=== PATIENT | female | born 1985 | race American Indian/Alaskan Native ===

== ENCOUNTER 2016-09-12 07:54 | Inpatient (IN) | payer MEDICAID ==
[2016-09-12] MEDS ORDERED: Lidocaine 1% 30 ML SDV INJECT PRN (08:02)
[2016-09-12] MEDS ORDERED: Acetaminophen 325 MG Tab PO PRN (08:02)
[2016-09-12] MEDS ORDERED: Carboprost Tromethamine 250 MCG/1 ML Amp IM PRN (08:02)
[2016-09-12] MEDS ORDERED: Sodium Chloride 0.9% 10 ML Syringe FLUSH PRN (08:02)
[2016-09-12] MEDS ORDERED: Lactated Ringers 500 ML IV ONE (08:02)
[2016-09-12] MEDS ORDERED: Methylergonovine 0.2 MG/1 ML Amp IM PRN (08:02)
[2016-09-12] MEDS ORDERED: Misoprostol 400 MCG (4 X 100 MCG TAB) RECTAL PRN (08:02)
[2016-09-12] MEDS ORDERED: Ondansetron 4 MG/2 ML SDV IV PRN (08:02)
[2016-09-12] MEDS ORDERED: Lactated Ringers 1,000 ML IV SCH (08:15)
[2016-09-12] MEDS ORDERED: fentaNYL 100 MCG/2 ML SDV ONE (08:24)
[2016-09-12] MEDS: fentaNYL 100 MCG/2 ML SDV IVPUSH ONE ×2 (08:27→09:49)
[2016-09-12] MEDS ORDERED: Oxytocin/Normal Saline 30 UNIT/500 ML BAG IV SCH (09:30)
[2016-09-12] MEDS ORDERED: fentaNYL 100 MCG/2 ML SDV IVPUSH ONE (09:46)
[2016-09-12] MEDS ORDERED: Benzocaine/Menthol 20%-0.5% Spray 56 GM Canister TOP PRN (12:35)
[2016-09-12] MEDS ORDERED: Simethicone 80 MG Tab.Chew PO PRN (12:35)
--- NOTE | 2016-09-12 13:30 | HP ---
HISTORY OF PRESENT ILLNESS: Gracie Rabago is a 31-year-old G5, P3-0-1-3 female at 38 weeks 3 days gestation being admitted for active labor at term. She complains of contractions, which started last night and have been gradually increasing in frequency and severity since onset. She did lose her mucus plug. Denies vaginal bleeding, leakage of fluid. Does endorse movement. She also endorses occasional blurred vision, but denies current headache, shortness of breath, nausea, vomiting, right upper quadrant pain, hematuria, dysuria, increased frequency, increased swelling or flank pain. She was seen last night in labor and delivery and was sent home as she did not declare herself in active labor making no cervical change after 2 hours. LABS: Maternal blood type O positive, antibody screen negative, rubella positive, RPR nonreactive, hep B nonreactive, HIV nonreactive, gonorrhea and Chlamydia not detected. Hep C reactive. Negative for group B strep. Glucose at 28 weeks was at 183. She did not come back for 3-hour glucose tolerance test. care started late, but has with her first visit at 26 weeks, but since then has had good care. COMPLICATIONS: Diet-controlled gestational diabetes, history of depression, positive urine drug screen; UDS in January was positive for opiates, has had 4 negative UDS since then with the most recent being yesterday. Hepatitis C carrier. Chlamydia during this which was treated and tested for cure. OBSTETRICAL HISTORY: First in 2004 resulted in spontaneous at 6 weeks. Rest of her 3 pregnancies have been term vaginal deliveries, last in 2014, which was quite precipitous. PAST MEDICAL HISTORY: Hepatitis C carrier. PAST SURGICAL HISTORY: No past surgical history. SOCIAL HISTORY: Originally from [place], [place]. She is currently unemployed. Is in a committed relationship with the father of her children, Shen. Just moved back from [place] to be with Shen. They live in [facility]. No pets. REVIEW OF SYSTEMS: Negative for fevers and chills. HEENT: Negative for headaches, nasal congestion, cough, and sore throat. Positive for vision changes. Respiratory: Negative for cough, sputum, shortness of breath. Cardiovascular: Negative for chest pain, chest pressure, chest discomfort, and lower extremity redness or swelling or pain. Gastrointestinal: Negative for epigastric pain, abdominal pain, change in bowel habits, nausea, vomiting. Genitourinary: Negative for dysuria, frequency, hematuria. Integument: Negative for pruritus, rash. Hematologic/Lymphatic: Negative for bleeding, easy bruising. Behavioral/Psych: Positive for post depression. Negative for history of anxiety. OBJECTIVE: Vital Signs: Blood pressure 128/70, pulse 89, temperature 97.9. General: Alert, oriented, and in no acute distress. Lungs: Clear to auscultation bilaterally. No wheezes or rales. Heart: Regular rate and rhythm. No murmurs, rub, gallop. Abdomen: Gravid, nontender, and nondistended. Bowel sounds present. Extremities: No edema, redness, or induration. heart tones 135, moderate variability, accelerations present, no decelerations. [place] contractions every 2-3 minutes. Presentation cephalic. Cervix dilation 6 cm, effacement 75%, station -2. ASSESSMENT: Gracie Rabago is a 31-year-old female 5 para 3-0-1-3 at 38 weeks and 3 days gestational age, GBS negative status. heart rate category 1. Normal labor at term. PLAN: Admit to labor and delivery. Initiate routine antepartum orders. Plan expectant management. Anticipate spontaneous vaginal delivery. The patient was discussed with Dr. Bridget Pineda. I appreciate her guidance in this case. [facility] /[id number] Patient seen and examined. Agree with Dr. Ramirez's note. -cma7/ [id number] MTDD
[2016-09-12] MEDS: Ibuprofen 800 MG Tab PO PRN ×2 (14:32→22:19)
[2016-09-12] MEDS ORDERED: Sertraline 50 MG Tab PO SCH (21:00)
[2016-09-12] MEDS: Ferrous Sulfate 325 MG Tab PO SCH (22:19)
[2016-09-12] MEDS: Docusate Sodium 100 MG Cap PO PRN (22:19)
[2016-09-13] MEDS: Ferrous Sulfate 325 MG Tab PO SCH (08:10)
[2016-09-13] MEDS: Docusate Sodium 100 MG Cap PO PRN (08:10)
[2016-09-13] MEDS: Ibuprofen 800 MG Tab PO PRN (08:10)
[2016-09-13 08:38] VITALS: BP 121/70
[2016-09-13] MEDS ORDERED: Prenatal Multivitamin with Calcium/Folic Acid/Iron Tab PO SCH (09:00)
--- NOTE | 2016-09-13 10:00 | PN ---
DATE: 09/13/2016 day #1. SUBJECTIVE: Gracie is ambulating, voiding, tolerating regular diet without difficulty. She reports her lochia is minimal in degree. She is not . She is up and ambulating well, tolerating p.o. intake and using the bathroom, good bowel sounds and passing gas, and has had a bowel movement at this time. She has no complaints. OBJECTIVE: Vitals reviewed. Vital Signs: Temperature 36.6 degrees Celsius, heart rate 69, blood pressure 121/70, respiratory rate 16, and oxygen saturation 96% on room air. General: A well-appearing healthy female, in no acute distress. Lungs: Clear to auscultation bilaterally. No wheezes, crackles, or rales. Heart: Regular rate and rhythm. S1 and S2 normal. No murmurs, rubs, or gallops. Abdomen: Soft, nontender, nondistended. Bowel sounds active. Uterus is firm and nontender at 1.5 cm above the umbilicus. Extremities: Lower extremities are nontender and have no edema. Skin: Warm and dry. Well perfused and no visible lesions. LABS: Hemoglobin this morning is 8.8. It was 9.1 on admission. ASSESSMENT: The patient is stable and comfortable, in no acute distress. She is day #1, status post normal spontaneous vaginal delivery. No clinical signs of anemia and her last hemoglobin is 8.8, and she is completely asymptomatic. However, we will start iron supplementation today. She was also started on Zoloft last night for history of depression. PLAN: Plan will be to encourage ambulation. Advance diet as tolerated. Saline lock IV with good oral intake. Continue with advancing routine cares. Plan for discharge later this afternoon. [facility] /[id number] Patient seen and examined. Agree with Dr. Ramirez's note. -09/20/16 2337 MTDD
--- NOTE | 2016-09-13 12:12 | DEL ---
DATE: 09/12/2016 PREDELIVERY DIAGNOSIS: A 31-year-old female -0-1-3 at gestational age 38 weeks 3 days here for normal labor and delivery. HCV carrier. Gestational diabetes diet controlled. Late care. POSTDELIVERY DIAGNOSIS: Same plus s/p delivery viable female . PROCEDURE: Normal spontaneous vaginal delivery. YARN SPINNER: Shaq Ramirez, PGY-III . EPISIOTOMY OR INCISION: No. INDICATIONS FOR INSTRUMENTAL DELIVERY: None. WEIGHT: 8 pounds 14 ounces. score is 8 at 1 minute, 9 at 5 minutes. placenta and cord mechanism, spontaneous delivery. DESCRIPTION: The patient presented to labor and delivery at 8 a.m. on September 12, 2016, in active labor. Cervix is dilated to 6 cm at arrival. Labor proceeded naturally with no need for augmentation or intervention. Bag of water was artificially ruptured. Cervix was completely dilated at 12:08 p.m. and at 12:23 p.m., she delivered a healthy, vigorous new born female . In dorsal lithotomy delivery in OA position over intact perineum. Infant dried and bulb suctioned. Three vessel cord doubly clamped and cut after delay of 45 seconds. Placenta was delivered shortly thereafter intact. EBL was 250 mL. Vagina was explored, and she did have a small left anterior labial laceration, which was hemostatic without intervention. There was another right small labial abrasion that did not require suturing either. Both mother and baby were left in the room in good medical condition. ESTIMATED BLOOD LOSS: 250 mL. SPECIMENS: None. Cord blood was obtained. CONDITION: Stable. Rubella positive. Blood type and antigen O positive, antibody negative. ADDITIONAL NOTES: Delivery performed under attending supervision. This delivery note is dictated for Dr. Bridget Pineda. I appreciate her guidance and extraction with this case. [facility] /[id number] Patient seen and examined. Agree with Dr. Ramirez's note. -cma09/20/16 2343 MTDMyra
--- NOTE | 2016-10-18 08:58 | DISCH ---
ADMITTING DIAGNOSES: 1. 5, para 3-0-1-3, at 38 and 3/7 weeks. 2. Late care. 3. Gestational diabetes, diet controlled. 4. Yeast infections treated at 27 and 35 weeks. 5. History of depression. 6. History of positive drug screen early in , negative the remainder. 7. Hepatitis C carrier. 8. History of spontaneous . 9. Urinary tract infection, treated at 35 weeks. DISCHARGE DIAGNOSES: 1. 5, now para 4-0-1-4, at 38 and 3/7 weeks. 2. Late care. 3. Gestational diabetes, diet controlled. 4. Yeast infections, treated at 27 and 35 weeks. 5. History of depression. 6. History of positive drug screen early in , negative the remainder. 7. Hepatitis C carrier. 8. History of spontaneous . 9. Urinary tract infection, treated at 35 weeks. 10.Delivery of a macrosomic . BRIEF COURSE: A 31-year-old female, admitted to the hospital in active labor which proceeded without complications. She had an uncomplicated spontaneous vaginal delivery with light meconium stained fluid, which went well. She delivered a term female with scores of 8 and 9, weighing 4035 g, length of 19-3/4 inches. There were no complications. Hospital course is good. She has been ambulating, tolerating regular diet, voiding without difficulties. She has not yet had a bowel movement. Admits that she feels like her depression is starting up, and requested being started on her Zoloft immediately. She denies any symptoms of her anemia. Please see Dr. Ramirez's note from earlier on the discharge day for examination. DISPOSITION: Home with family. MEDICATIONS: 1. Zoloft 50 mg p.o. daily. 2. Iron 325 mg twice daily. 3. Colace 100 mg twice daily. 4. Ibuprofen 600 mg every 6 hours as needed. 5. Tylenol 650 mg every 6 hours as needed. FOLLOWUP: She will be needing to set up a 6-week examination in the office. 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 Her questions have been answered. She is comfortable with the plan as outlined. [facility] /[id number] MARCD
== END 2016-09-13 15:00 | disposition home or self-care (01) | DRG 774 ==
LOC: DL.OBCHECK 07:54 → DL.OB 08:02 → OBSVTOIN 12:23
PROVIDERS: ADMIT Family Medicine; ATTEND Family Medicine
PROC: 10E0XZZ Delivery of Products of Conception, External Approach (ICD-10-PCS; principal; 2016-09-12)
PROC: 10907ZC Drainage of Amniotic Fluid, Therapeutic from Products of Conception, Via Natural or Artificial Opening (ICD-10-PCS; 2016-09-12)
DX: O24.420 Gestational diabetes mellitus in childbirth, diet controlled (principal); O99.834 Other infection carrier state complicating childbirth; O99.324 Drug use complicating childbirth; O70.0 First degree perineal laceration during delivery; Z3A.38 38 weeks gestation of pregnancy; Z37.0 Single live birth; F11.90 Opioid use, unspecified, uncomplicated; B18.2 Chronic viral hepatitis C
CPT/HCPCS: 36415; 85014; 85018; 85027; A9270-GY; J2590; J3010; J7120

== ENCOUNTER 2016-10-21 19:33 | Emergency (ER) | payer MEDICAID ==
[2016-10-21 19:42] VITALS: BP 134/76
--- NOTE | 2016-10-21 19:51 | EDM.PDOC ---
ED HPI GENERAL MEDICAL PROBLEM - General Chief Complaint: Skin Complaint Stated Complaint: BITE/BOIL ON UNDERSIDE OF ARM Time Seen by Provider: 10/21/16 19:49 Source of Information: Reports: Patient History Limitations: Reports: No Limitations - History of Present Illness INITIAL COMMENTS - FREE TEXT/NARRATIVE: 1 week h/o boil under left forearm, popped few days ago but now it's back Left Lower Arm Pain Score (Numeric/FACES): 8 - Related Data Allergies Allergy/AdvReac Type Severity Reaction Status Date / Time No Known Allergies Allergy Verified 10/21/16 19:43 Home Meds: Home Meds PNV95/Ferrous Fumarate/FA [ Tablet] 1 tab PO DAILY 09/12/16 [History] Past Medical History - Past Health History Medical/Surgical History: Denies Medical/Surgical History HEENT History: Reports: None Cardiovascular History: Reports: None Respiratory History: Reports: None Gastrointestinal History: Reports: None Genitourinary History: Reports: UTI, Recurrent ENROLLMENT REPRESENTATIVE History: Reports: Other OB/BYN History: three pregnancies, one miscarriage - 2003 Musculoskeletal History: Reports: None Neurological History: Reports: None Psychiatric History: Reports: Depression, Other (See Below) Other Psychiatric History: History of PPD Endocrine/Metabolic History: Reports: Diabetes, Gestational, Other (See Below) Other Endocrine/Metabolic History: Diet-controlled per Epic chart Hematologic History: Reports: None Immunologic History: Reports: None Oncologic (Cancer) History: Reports: None Dermatologic History: Reports: None - Infectious Disease History Infectious Disease History: Reports: Hepatitis C - Past Surgical History Head Surgeries/Procedures: Reports: None Social & Family History - Family History Family Medical History: Noncontributory - Tobacco Use Smoking Status *Q: Never Smoker Years of Tobacco use: 12 Packs/Tins Daily: 0.5 Used Tobacco, but Quit: Yes Month Tobacco Last Used: 2010 Second Hand Smoke Exposure: No - Caffeine Use Caffeine Use: Reports: Coffee - Recreational Drug Use Recreational Drug Use: No Drug Use in Last 12 Months: Yes Recreational Drug Type: Reports: Methamphetamine Recreational Drug Use Frequency: Not Used In Over 6 Months Recreational Drug Last Use: dec ED ROS GENERAL - Review of Systems Review Of Systems: ROS reveals no pertinent complaints other than HPI. ED EXAM, SKIN/RASH Exam: See Below Exam Limited By: No Limitations General Appearance: Alert, WD/WN, No Apparent Distress Ears: Hearing Grossly Normal Throat/Mouth: Normal Voice, No Airway Compromise Head: Atraumatic, Normocephalic Neck: Non-Tender, Full Range of Motion Respiratory/Chest: No Respiratory Distress Cardiovascular: Regular Rate, Rhythm GI/Abdominal: Soft, Non-Tender Neurological: Alert, Oriented, Normal Cognition, Normal Gait, No Motor/Sensory Deficits Psychiatric: Normal Affect, Normal Mood Skin: Warm, Dry, Normal Color Location, Skin: Upper Extremity, Left Characteristics: Other (biol) Associated features: Inflammation Lymphatic: No Adenopathy Course - Vital Signs Last Recorded V/S: Last Vital Signs Temp 36.3 C 10/21/16 19:41 Pulse 87 10/21/16 19:41 Resp 18 10/21/16 19:41 BP 134/76 10/21/16 19:41 Pulse Ox 97 10/21/16 19:41 Departure - Departure Time of Disposition: 19:50 Disposition: Home, Self-Care 01 Condition: Good Clinical Impression: Boil - Discharge Information Instructions: Abscess, [id number] Forms: ED Department Discharge Additional Instructions: 1) use hot compress to boil 2) keep boil covered rx given; clindamycin 150mg qid x 40
== END 2016-10-21 19:53 | disposition home or self-care (01) ==
LOC: DL.ED 19:33
DX: L02.424 Furuncle of left upper limb (principal); Z79.899 Other long term (current) drug therapy
CPT/HCPCS: 99283

== ENCOUNTER 2017-06-06 05:43 | Emergency (ER) | payer MEDICAID ==
[2017-06-06 05:49] VITALS: BP 131/69
--- NOTE | 2017-06-06 06:03 | EDM.PDOC ---
<Bennett Rawls M - Last Filed: 06/06/17 06:27> ED HPI GENERAL MEDICAL PROBLEM - General Stated Complaint: IN BY AMBULANCE Time Seen by Provider: 06/06/17 06:00 Source of Information: Reports: Patient, EMS History Limitations: Reports: No Limitations - History of Present Illness INITIAL COMMENTS - FREE TEXT/NARRATIVE: This 32 yo female patient was brought to the ED by [facility] due to lower abdominal pain and nausea. EMS reports the patient stated that she fell off a bed yesterday. The patient reported to EMS that her last menstrual cycle was in March, but she had some spotting 2 days ago that has quit. [facility] reports that they were called to the patient's residence last night, but the patient refused transport at that time. The patient reports her initial symptoms started at about 0100 this morning with pain to her right side. The patient reports the pain started when she got up to go to the bathroom. The patient reports she took Tylenol which relieved her pain. The patient reports she had increased lower abdominal pain this morning just prior to calling the ambulance. The patient reports her abdominal pain is similar to the symptoms she had last time when she had a miscarriage. The patient also reports she dove off her bed last evening at about 1900 to catch her child and scratched her forehead. The patient reports she has been having a difficult time dealing with her diagnosis of hepatitis C. The patient reports she gets into arguments with her spouse over the hepatitis C. Onset: Today Duration: Minutes:, Constant Location: Reports: Abdomen (diffuse lower abdominal pain) Quality: Reports: Ache, Dull Severity: Moderate Improves with: Reports: None Worsens with: Reports: None Context: Reports: Other Bilateral Lower Abdominal Pain Score (Numeric/FACES): 8 - Related Data Allergies Allergy/AdvReac Type Severity Reaction Status Date / Time No Known Allergies Allergy Verified 06/06/17 05:49 Home Meds: Home Meds QUEtiapine Fumarate [Seroquel Xr] 100 mg PO DAILY 06/06/17 [History] Past Medical History - Past Health History Medical/Surgical History: Denies Medical/Surgical History HEENT History: Reports: None Cardiovascular History: Reports: None Respiratory History: Reports: None Gastrointestinal History: Reports: None Genitourinary History: Reports: UTI, Recurrent ENROLLMENT COORDINATOR History: Reports: Other OB/BYN History: three pregnancies, one miscarriage - 2003 Musculoskeletal History: Reports: None Neurological History: Reports: None Psychiatric History: Reports: Depression, Other (See Below) Other Psychiatric History: History of PPD Endocrine/Metabolic History: Reports: Diabetes, Gestational, Other (See Below) Other Endocrine/Metabolic History: Diet-controlled per Epic chart Hematologic History: Reports: None Immunologic History: Reports: None Oncologic (Cancer) History: Reports: None Dermatologic History: Reports: None - Infectious Disease History Infectious Disease History: Reports: Hepatitis C - Past Surgical History Head Surgeries/Procedures: Reports: None Social & Family History - Family History Family Medical History: Noncontributory - Tobacco Use Smoking Status *Q: Never Smoker Years of Tobacco use: 12 Packs/Tins Daily: 0.5 Used Tobacco, but Quit: Yes Month/Year Tobacco Last Used: 2010 Second Hand Smoke Exposure: No - Caffeine Use Caffeine Use: Reports: Coffee - Recreational Drug Use Recreational Drug Use: No Drug Use in Last 12 Months: Yes Recreational Drug Type: Reports: Methamphetamine Recreational Drug Use Frequency: Not Used In Over 6 Months Recreational Drug Last Use: oct ED ROS GENERAL - Review of Systems Review Of Systems: ROS reveals no pertinent complaints other than HPI. ED EXAM, GI/ABD - Physical Exam Exam: See Below Exam Limited By: No Limitations General Appearance: Alert, WD/WN, Moderate Distress Eyes: Bilateral: Normal Appearance, EOMI Ears: Normal External Exam, Normal Canal, Hearing Grossly Normal, Normal TMs Nose: Normal Inspection, Normal Mucosa, No Blood Throat/Mouth: Normal Inspection, Normal Lips, Normal Teeth, Normal Gums, Normal Oropharynx, Normal Voice, No Airway Compromise Head: Other (abrasion to her forehead) Neck: Normal Inspection, Supple, Non-Tender, Full Range of Motion Respiratory/Chest: No Respiratory Distress, Lungs Clear, Normal Breath Sounds, No Accessory Muscle Use, Chest Non-Tender Cardiovascular: Normal Peripheral Pulses, Regular Rate, Rhythm, No Edema, No Gallop, No JVD, No Murmur, No Rub GI/Abdominal Exam: Normal Bowel Sounds, Soft, No Organomegaly, No Distention, No Abnormal Bruit, No Mass, Pelvis Stable, Tender (lower abdomen) (Female) Exam: Deferred Rectal (Female) Exam: Deferred Back Exam: Normal Inspection, Full Range of Motion, NT Extremities: Normal Inspection, Normal Range of Motion, Non-Tender, Normal Capillary Refill, No Pedal Edema Neurological: Alert, Oriented, CN II-XII Intact, Normal Cognition, Normal Gait, Normal Reflexes, No Motor/Sensory Deficits Psychiatric: Anxious, Flat Affect Skin Exam: Warm, Dry, Intact, Normal Color, No Rash Lymphatic: No Adenopathy Course - Vital Signs Last Recorded V/S: Last Vital Signs Temp 97.7 F 06/06/17 05:43 Pulse 73 06/06/17 05:43 Resp 18 06/06/17 05:43 BP 131/69 06/06/17 05:43 Pulse Ox 98 06/06/17 05:43 - Orders/Labs/Meds Orders: Active Orders 24 hr Category Date Time Status DRUG SCREEN URINE BIORAD [URCHEM] Stat Lab 06/06/17 05:55 Ordered HCG QUALITATIVE,URINE [URCHEM] Stat Lab 06/06/17 05:55 Ordered UA W/MICROSCOPIC [URIN] Stat Lab 06/06/17 05:55 Ordered Labs: Laboratory Tests 06/06/17 06/06/17 06/06/17 Range/Units 05:55 05:55 05:55 WBC (5.0-10.0) 10^3/uL RBC (4.2-5.4) 10^6/uL Hgb (12.0-16.0) g/dL Hct (37.0-47.0) % MCV (80-100) fL MCH (27.0-34.0) pg MCHC (33.0-35.0) g/dL Plt Count (150-450) 10^3/uL Neut % (Auto) (42.2-75.2) % Lymph % (Auto) (20.5-50.1) % Boyd % (Auto) (2-8) % Eos % (Auto) (1.0-3.0) % Baso % (Auto) (0.0-1.0) % Sodium (135-145) mmol/L Potassium (3.6-5.0) mmol/L Chloride (101-111) mmol/L Carbon Dioxide (21.0-31.0) mmol/L Anion Gap BUN (7-18) mg/dL Creatinine (0.6-1.3) mg/dL Est Cr Clr Drug Dosing mL/min Estimated GFR (MDRD) BUN/Creatinine Ratio Glucose (74-105) mg/dL Calcium (8.4-10.2) mg/dl Total Bilirubin (0.2-1.0) mg/dL AST (10-42) IU/L ALT (10-60) IU/L Alkaline Phosphatase (42-121) IU/L Total Protein (6.7-8.2) g/dl Albumin (3.2-5.5) g/dl Globulin Albumin/Globulin Ratio HCG, Quant (0-25) mIU/ml Beta HCG, Quant mIU/ml Urine Color Yellow (YELLOW) Urine Appearance Slightly cloudy (CLEAR) Urine pH 7.0 (5.0-9.0) Ur Specific Kirby 1.020 (1.005-1.030) Urine Protein Negative (NEGATIVE) Urine Glucose (UA) Negative (NEGATIVE) Urine Ketones Trace H (NEGATIVE) Urine Occult Blood Negative (NEGATIVE) Urine Nitrite Negative (NEGATIVE) Urine Bilirubin Negative (NEGATIVE) Urine Urobilinogen 1.0 (0.2-1.0) mg/dL Ur Leukocyte Esterase Negative (NEGATIVE) Urine RBC 0-5 /HPF Urine WBC 0-5 (0-5/HPF) /HPF Ur Epithelial Cells Moderate H /HPF Urine Bacteria Rare (0-FEW/HPF) /HPF Urine Mucus Many H /LPF Urine HCG, Qual Positive Urine Opiates Screen Negative (NEGATIVE) Ur Oxycodone Screen Negative (NEGATIVE) Urine Methadone Screen Negative (NEGATIVE) Ur Barbiturates Screen Negative (NEGATIVE) U Tricyclic Antidepress Negative (NEGATIVE) Ur Phencyclidine Scrn Negative (NEGATIVE) Ur Amphetamine Screen Negative (NEGATIVE) U Methamphetamines Scrn Negative (NEGATIVE) Urine MDMA Screen Negative (NEGATIVE) U Benzodiazepines Scrn Negative (NEGATIVE) Urine Cocaine Screen Negative (NEGATIVE) U Marijuana (THC) Screen Negative (NEGATIVE) 06/06/17 06/06/17 06/06/17 Range/Units 05:55 05:55 05:55 WBC 5.6 (5.0-10.0) 10^3/uL RBC 4.62 (4.2-5.4) 10^6/uL Hgb 11.2 L D (12.0-16.0) g/dL Hct 34.0 L (37.0-47.0) % MCV 73.6 L D (80-100) fL MCH 24.2 L (27.0-34.0) pg MCHC 32.9 L (33.0-35.0) g/dL Plt Count 251 (150-450) 10^3/uL Neut % (Auto) 64.9 (42.2-75.2) % Lymph % (Auto) 26.0 (20.5-50.1) % Boyd % (Auto) 8.7 H (2-8) % Eos % (Auto) 0.2 L (1.0-3.0) % Baso % (Auto) 0.2 (0.0-1.0) % Sodium 133 L (135-145) mmol/L Potassium 3.7 (3.6-5.0) mmol/L Chloride 103 (101-111) mmol/L Carbon Dioxide 22.0 (21.0-31.0) mmol/L Anion Gap 11.7 BUN 10 (7-18) mg/dL Creatinine 0.7 (0.6-1.3) mg/dL Est Cr Clr Drug Dosing 113.24 mL/min Estimated GFR (MDRD) > 60 BUN/Creatinine Ratio 14.28 Glucose 98 (74-105) mg/dL Calcium 9.0 (8.4-10.2) mg/dl Total Bilirubin 0.4 (0.2-1.0) mg/dL AST 26 (10-42) IU/L ALT 23 (10-60) IU/L Alkaline Phosphatase 57 (42-121) IU/L Total Protein 7.5 (6.7-8.2) g/dl Albumin 4.0 (3.2-5.5) g/dl Globulin 3.5 Albumin/Globulin Ratio 1.14 HCG, Quant > 1324 H (0-25) mIU/ml Beta HCG, Quant [id number] mIU/ml Urine Color (YELLOW) Urine Appearance (CLEAR) Urine pH (5.0-9.0) Ur Specific Kirby (1.005-1.030) Urine Protein (NEGATIVE) Urine Glucose (UA) (NEGATIVE) Urine Ketones (NEGATIVE) Urine Occult Blood (NEGATIVE) Urine Nitrite (NEGATIVE) Urine Bilirubin (NEGATIVE) Urine Urobilinogen (0.2-1.0) mg/dL Ur Leukocyte Esterase (NEGATIVE) Urine RBC /HPF Urine WBC (0-5/HPF) /HPF Ur Epithelial Cells /HPF Urine Bacteria (0-FEW/HPF) /HPF Urine Mucus /LPF Urine HCG, Qual Urine Opiates Screen (NEGATIVE) Ur Oxycodone Screen (NEGATIVE) Urine Methadone Screen (NEGATIVE) Ur Barbiturates Screen (NEGATIVE) U Tricyclic Antidepress (NEGATIVE) Ur Phencyclidine Scrn (NEGATIVE) Ur Amphetamine Screen (NEGATIVE) U Methamphetamines Scrn (NEGATIVE) Urine MDMA Screen (NEGATIVE) U Benzodiazepines Scrn (NEGATIVE) Urine Cocaine Screen (NEGATIVE) U Marijuana (THC) Screen (NEGATIVE) Departure - Departure Disposition: Home, Self-Care 01 Clinical Impression: Intrauterine Subchorionic bleed Qualifiers: Fetus number: single or unspecified fetus Trimester: first trimester Qualified Code(s): O41.8X10 - Other specified disorders of amniotic fluid and membranes, first trimester, not applicable or unspecified; O46.8X1 - Other antepartum hemorrhage, first trimester - Discharge Information Instructions: Subchorionic Hematoma, First Trimester of Forms: ED Department Discharge Additional Instructions: Begin taking vitamins Follow up with your primary care facility <Alvina Mcginnis - Last Filed: 06/06/17 08:35> Course - Radiology Interpretation Free Text/Narrative:: OB Ultrasound: Single live 6 week 5 day intrauterine gestation. Tiny subchorionic bleed posteriorly. See rad report Departure - Departure Time of Disposition: 08:33 Condition: Fair
[2017-06-06 06:42] LABS: CHLORIDE,CL 103 mmol/L (101-111); SODIUM,NA 133 mmol/L (135-145)
--- NOTE | 2017-06-06 08:18 | US ---
Clinical history: 32-year-old gravid" 6 para 4 female (LMP 21 March 2017 with cramping and "spottin g" for 2 days. Interpretation: Midline uterus mildly enlarged and anteverted with a clearly demonstrated central ges tational sac that has a uniformly thick chorionic "rind"; 4.4 mm diameter yolk sac; and discrete feta l pole with heart rate 173 bpm. [place]-rump length measurement 7.8 mm proximally to 6 week 5 day gestation. Note: Tiny subchorionic fluid collection posteriorly measures 2.5 x 5.8 x 4.7 mm and probably indicat es tiny subchorionic bleed. Symmetric normal-appearing ovaries. No adnexal mass lesion or free fluid in the cul-de-sac. No corpus luteum cyst of . Right ovary measures 2.6 x 2.3 x 2.0 cm. Left ovary measures 2.3 x 2.3 x 2.6 cm. CONCLUSION: Single live 6 week 5 day intrauterine gestation. Tiny subchorionic bleed posteriorly.
== END 2017-06-06 08:50 | disposition home or self-care (01) ==
LOC: DL.ED 05:43
DX: O41.8X10 Other specified disorders of amniotic fluid and membranes, first trimester, not applicable or unspecified (principal); O46.8X1 Other antepartum hemorrhage, first trimester; Z87.891 Personal history of nicotine dependence; Z3A.01 Less than 8 weeks gestation of pregnancy
CPT/HCPCS: 36415; 76815; 80053; 80305; 81001; 81025; 84702; 85025; 99284

== ENCOUNTER 2017-07-17 02:15 | Emergency (ER) | payer SELFPAY ==
[~2017-07-17 02:15] MED LIST: Sodium Chloride 0.9% 1,000 ML IV ONE
--- NOTE | 2017-07-17 02:19 | EDM.PDOC ---
ED HPI GENERAL MEDICAL PROBLEM - General Stated Complaint: IN BY AMBULANCE Time Seen by Provider: 07/17/17 02:00 Source of Information: Reports: Patient, EMS History Limitations: Reports: No Limitations - History of Present Illness INITIAL COMMENTS - FREE TEXT/NARRATIVE: This 32 yo female patient was brought to the ED by [facility] due to "acting strange" . EMS reports that the patient's partner reports that the patient left this evening for a while and came back acting different. The patient's partner reports that when the patient got home, she went to the bathroom and took a bath. After she got out of the bath, the patient continued to act strange, so the ambulance was called. The patient reports that she took a bath. While she was taking a bath, the patient reports that she saw something swimming in the bathtub. After seeing something swimming in the bathtub, the patient reports she drained the water and got dressed quickly. The patient reports that she was then seeing different things including her and her children's dad in trees by his father's sweat, her daughter crying because she was scared and very bright and vivid colors. The patient reports that she has not used any drugs in the past 2 weeks. The patient denies any ETOH use. The patient reports that she has some lower back pain and some lower abdominal pain. The patient reports her abdominal pain has been present since she was seen in the ED on 06/06/17. During that visit, the patient did have lab work and an ultrasound confirming . The patient reports that she has not followed up with a clinic visit , is not taking vitamins and has not been to any visits. The patient reports that Rubina Liang knows that they have transportation issues. The patient also reports that she knows that she needs to get into the clinic for both herself and her daughter. Onset: Today Duration: Minutes:, Constant, Improving Location: Reports: Abdomen (lower abdominal pain (present for more than 1 month) ), Back (ache), Other Quality: Reports: Ache, Dull Severity: Moderate Improves with: Reports: None Worsens with: Reports: None Associated Symptoms: Reports: Other (hallucinations) Right Upper Back Pain Score (Numeric/FACES): 5 - Related Data Allergies Allergy/AdvReac Type Severity Reaction Status Date / Time No Known Allergies Allergy Verified 06/06/17 05:49 Home Meds: Home Meds QUEtiapine Fumarate [Seroquel Xr] 100 mg PO DAILY 06/06/17 [History] Past Medical History - Past Health History Medical/Surgical History: Denies Medical/Surgical History HEENT History: Reports: None Cardiovascular History: Reports: None Respiratory History: Reports: None Gastrointestinal History: Reports: None Genitourinary History: Reports: UTI, Recurrent 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 OB/BYN History: three pregnancies, one miscarriage - 2003 Musculoskeletal History: Reports: None Neurological History: Reports: None Psychiatric History: Reports: Depression, Other (See Below) Other Psychiatric History: History of PPD Endocrine/Metabolic History: Reports: Diabetes, Gestational, Other (See Below) Other Endocrine/Metabolic History: Diet-controlled per Epic chart Hematologic History: Reports: None Immunologic History: Reports: None Oncologic (Cancer) History: Reports: None Dermatologic History: Reports: None - Infectious Disease History Infectious Disease History: Reports: Hepatitis C - Past Surgical History Head Surgeries/Procedures: Reports: None Social & Family History - Family History Family Medical History: Noncontributory - Caffeine Use Caffeine Use: Reports: Coffee ED ROS GENERAL - Review of Systems Review Of Systems: ROS reveals no pertinent complaints other than HPI. ED EXAM, GENERAL - Physical Exam Exam: See Below Exam Limited By: No Limitations General Appearance: Alert, WD/WN, Mild Distress Eye Exam: Bilateral Eye: EOMI, Normal Inspection, PERRL Ears: Normal External Exam, Normal Canal, Hearing Grossly Normal, Normal TMs Nose: Normal Inspection, Normal Mucosa, No Blood Throat/Mouth: Normal Inspection, Normal Lips, Normal Teeth, Normal Gums, Normal Oropharynx, Normal Voice, No Airway Compromise Head: Atraumatic, Normocephalic Neck: Normal Inspection, Supple, Non-Tender, Full Range of Motion Respiratory/Chest: No Respiratory Distress, Lungs Clear, Normal Breath Sounds, No Accessory Muscle Use, Chest Non-Tender Cardiovascular: Normal Peripheral Pulses, Regular Rate, Rhythm, No Edema, No Gallop, No JVD, No Murmur, No Rub GI/Abdominal: Normal Bowel Sounds, Soft, Non-Tender, No Organomegaly, No Abnormal Bruit, No Mass (Female) Exam: Deferred Rectal (Female) Exam: Deferred Back Exam: Paraspinal Tenderness Extremities: Normal Inspection, Normal Range of Motion, Non-Tender, Normal Capillary Refill, No Pedal Edema Neurological: Alert, Oriented Psychiatric: Other (The patient reports seeing bright colors, visions of things swimming in the bathtub, and visions of events that are not and have not happened. ) Skin Exam: Warm, Dry, Intact, Normal Color, No Rash Lymphatic: No Adenopathy Course - Vital Signs Last Recorded V/S: Last Vital Signs Temp Pulse 64 07/17/17 02:29 Resp 16 07/17/17 02:29 BP 116/61 07/17/17 02:29 Pulse Ox 100 07/17/17 02:29 - Orders/Labs/Meds Orders: Active Orders 24 hr Category Date Time Status ACETAMINOPHEN [CHEM] Stat Lab 07/17/17 02:10 Received DRUG SCREEN URINE BIORAD [URCHEM] Stat Lab 07/17/17 02:15 Ordered ETHANOL BLOOD MEDICAL [CHEM] Stat Lab 07/17/17 02:10 Received HCG QUANTITATIVE,SERUM [CHEM] Stat Lab 07/17/17 02:10 Received SALICYLATE [CHEM] Stat Lab 07/17/17 02:10 Received UA W/MICROSCOPIC [URIN] Stat Lab 07/17/17 02:15 Ordered Sodium Chloride 0.9% [Normal Saline] 1,000 ml Med 07/17/17 02:10 Active IV .BOLUS Medication Orders Sodium Chloride (Normal Saline) 1,000 mls @ 999 mls/hr IV .BOLUS ONE Stop: 07/17/17 03:10 Last Admin: 07/17/17 02:13 Dose: 999 mls/hr Labs: Laboratory Tests 07/17/17 07/17/17 07/17/17 Range/Units 02:10 02:10 02:15 WBC 6.5 (5.0-10.0) 10^3/uL RBC 4.28 (4.2-5.4) 10^6/uL Hgb 10.3 L (12.0-16.0) g/dL Hct 32.1 L (37.0-47.0) % MCV 75.0 L (80-100) fL MCH 24.1 L (27.0-34.0) pg MCHC 32.1 L (33.0-35.0) g/dL Plt Count 255 (150-450) 10^3/uL Neut % (Auto) 48.9 (42.2-75.2) % Lymph % (Auto) 41.9 (20.5-50.1) % [place] % (Auto) 7.8 (2-8) % Eos % (Auto) 1.1 (1.0-3.0) % Baso % (Auto) 0.3 (0.0-1.0) % Sodium 137 (135-145) mmol/L Potassium 4.2 (3.6-5.0) mmol/L Chloride 104 (101-111) mmol/L Carbon Dioxide 28.0 (21.0-31.0) mmol/L Anion Gap 9.2 BUN 9 (7-18) mg/dL Creatinine 0.7 (0.6-1.3) mg/dL Est Cr Clr Drug Dosing TNP Estimated GFR (MDRD) > 60 BUN/Creatinine Ratio 12.85 Glucose 96 (74-105) mg/dL Calcium 8.8 (8.4-10.2) mg/dl Total Bilirubin 0.4 (0.2-1.0) mg/dL AST 23 (10-42) IU/L ALT 22 (10-60) IU/L Alkaline Phosphatase 56 (42-121) IU/L Total Protein 6.8 (6.7-8.2) g/dl Albumin 3.3 (3.2-5.5) g/dl Globulin 3.5 Albumin/Globulin Ratio 0.94 Urine Color Light yellow (YELLOW) Urine Appearance Clear (CLEAR) Urine pH 7.0 (5.0-9.0) Ur Specific [place] 1.010 (1.005-1.030) Urine Protein Negative (NEGATIVE) Urine Glucose (UA) Negative (NEGATIVE) Urine Ketones Negative (NEGATIVE) Urine Occult Blood Negative (NEGATIVE) Urine Nitrite Negative (NEGATIVE) Urine Bilirubin Negative (NEGATIVE) Urine Urobilinogen 0.2 (0.2-1.0) mg/dL Ur Leukocyte Esterase Negative (NEGATIVE) Urine RBC 0-5 /HPF Urine WBC 0-5 (0-5/HPF) /HPF Ur Epithelial Cells Rare /HPF Amorphous Sediment Rare (0/HPF) /HPF Urine Bacteria Rare (0-FEW/HPF) /HPF Urine Opiates Screen (NEGATIVE) Ur Oxycodone Screen (NEGATIVE) Urine Methadone Screen (NEGATIVE) Ur Barbiturates Screen (NEGATIVE) U Tricyclic Antidepress (NEGATIVE) Ur Phencyclidine Scrn (NEGATIVE) Ur Amphetamine Screen (NEGATIVE) U Methamphetamines Scrn (NEGATIVE) Urine MDMA Screen (NEGATIVE) U Benzodiazepines Scrn (NEGATIVE) Urine Cocaine Screen (NEGATIVE) U Marijuana (THC) Screen (NEGATIVE) 07/17/17 Range/Units 02:15 WBC (5.0-10.0) 10^3/uL RBC (4.2-5.4) 10^6/uL Hgb (12.0-16.0) g/dL Hct (37.0-47.0) % MCV (80-100) fL MCH (27.0-34.0) pg MCHC (33.0-35.0) g/dL Plt Count (150-450) 10^3/uL Neut % (Auto) (42.2-75.2) % Lymph % (Auto) (20.5-50.1) % [place] % (Auto) (2-8) % Eos % (Auto) (1.0-3.0) % Baso % (Auto) (0.0-1.0) % Sodium (135-145) mmol/L Potassium (3.6-5.0) mmol/L Chloride (101-111) mmol/L Carbon Dioxide (21.0-31.0) mmol/L Anion Gap BUN (7-18) mg/dL Creatinine (0.6-1.3) mg/dL Est Cr Clr Drug Dosing Estimated GFR (MDRD) BUN/Creatinine Ratio Glucose (74-105) mg/dL Calcium (8.4-10.2) mg/dl Total Bilirubin (0.2-1.0) mg/dL AST (10-42) IU/L ALT (10-60) IU/L Alkaline Phosphatase (42-121) IU/L Total Protein (6.7-8.2) g/dl Albumin (3.2-5.5) g/dl Globulin Albumin/Globulin Ratio Urine Color (YELLOW) Urine Appearance (CLEAR) Urine pH (5.0-9.0) Ur Specific [place] (1.005-1.030) Urine Protein (NEGATIVE) Urine Glucose (UA) (NEGATIVE) Urine Ketones (NEGATIVE) Urine Occult Blood (NEGATIVE) Urine Nitrite (NEGATIVE) Urine Bilirubin (NEGATIVE) Urine Urobilinogen (0.2-1.0) mg/dL Ur Leukocyte Esterase (NEGATIVE) Urine RBC /HPF Urine WBC (0-5/HPF) /HPF Ur Epithelial Cells /HPF Amorphous Sediment (0/HPF) /HPF Urine Bacteria (0-FEW/HPF) /HPF Urine Opiates Screen Negative (NEGATIVE) Ur Oxycodone Screen Negative (NEGATIVE) Urine Methadone Screen Negative (NEGATIVE) Ur Barbiturates Screen Negative (NEGATIVE) U Tricyclic Antidepress Negative (NEGATIVE) Ur Phencyclidine Scrn Negative (NEGATIVE) Ur Amphetamine Screen Negative (NEGATIVE) U Methamphetamines Scrn Negative (NEGATIVE) Urine MDMA Screen Negative (NEGATIVE) U Benzodiazepines Scrn Negative (NEGATIVE) Urine Cocaine Screen Negative (NEGATIVE) U Marijuana (THC) Screen Negative (NEGATIVE) Meds: Medications Generic Name Dose Route Start Last Admin Trade Name Freq PRN Reason Stop Dose Admin Sodium Chloride 1,000 mls @ 999 mls/hr 07/17/17 02:10 07/17/17 02:13 Normal Saline IV 07/17/17 03:10 999 mls/hr .BOLUS ONE Administration - Re-Assessments/Exams Free Text/Narrative Re-Assessment/Exam: 07/17/17 02:36 heart tones were good with a rate in the 140's. 07/17/17 02:55 The patient was advised of the examination and lab results. The patient reports she still sees some vivid colors, but is no longer having hallucinations. Departure - Departure Time of Disposition: 03:30 Disposition: Home, Self-Care 01 Condition: Fair Clinical Impression: Hallucination, visual, Sleep deprivation - Discharge Information Forms: ED Department Discharge Care Plan Goals: The patient was advised of the examination and lab results. The patient was encouraged to arrange an appointment for a visit as well as for a follow-up for other health concerns. If the patient has any additional symptoms or concerns, the patient should visit her primary care facility or return to the emergency department. - My Orders Last 24 Hours: My Active Orders 07/17/17 02:10 ACETAMINOPHEN [CHEM] Stat ETHANOL BLOOD MEDICAL [CHEM] Stat HCG QUANTITATIVE,SERUM [CHEM] Stat SALICYLATE [CHEM] Stat Sodium Chloride 0.9% [Normal Saline] 1,000 ml IV .BOLUS 07/17/17 02:15 DRUG SCREEN URINE BIORAD [URCHEM] Stat UA W/MICROSCOPIC [URIN] Stat - Assessment/Plan Last 24 Hours: My Active Orders 07/17/17 02:10 ACETAMINOPHEN [CHEM] Stat ETHANOL BLOOD MEDICAL [CHEM] Stat HCG QUANTITATIVE,SERUM [CHEM] Stat SALICYLATE [CHEM] Stat Sodium Chloride 0.9% [Normal Saline] 1,000 ml IV .BOLUS 07/17/17 02:15 DRUG SCREEN URINE BIORAD [URCHEM] Stat UA W/MICROSCOPIC [URIN] Stat
[2017-07-17 02:30] VITALS: BP 116/61
[2017-07-17 02:35] LABS: CHLORIDE,CL 104 mmol/L (101-111); SODIUM,NA 137 mmol/L (135-145)
[2017-07-17 02:36] LABS: ACETAMINOPHEN < 10
== END 2017-07-17 05:54 | disposition home or self-care (01) ==
LOC: DL.ED 02:15
DX: R44.1 Visual hallucinations (principal); Z72.820 Sleep deprivation; Z79.899 Other long term (current) drug therapy
CPT/HCPCS: 36415; 80053; 80305; 81001; 84702; 85025; 96360; 99284; G0480; J7030; 99283

== ENCOUNTER 2018-06-12 17:16 | Emergency (ER) | payer MEDICAID ==
[2018-06-12 17:43] VITALS: BP 130/71
--- NOTE | 2018-06-12 19:00 | EDM.PDOC ---
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 She reports she first noticed a red "scratch" on Tuesday night that was painful to the touch. She used antiseptic spray to the area for pain relief that was not effective. She has dyspareunia which has intensified to tenderness and pain constantly. Nothing relieves her pain and any touch or pressure makes it worse. She states her significant other recently had a partner with a "cold sore". She denies associated symptoms of fever, chills, headache, dizziness, chest pain, shortness of breath, abdominal pain, or other rashes. 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 2017, 2015,2007,2006 Musculoskeletal History: Reports: None Neurological History: Reports: None Psychiatric History: Reports: Depression, Other (See Below) Other Psychiatric History: History of PPD Endocrine/Metabolic History: Reports: Diabetes, Gestational, Other (See Below) Other Endocrine/Metabolic History: Diet-controlled per Epic chart Hematologic History: Reports: None, Other (See Below) Other Hematologic History: hep c Immunologic History: Reports: None Oncologic (Cancer) History: Reports: None Dermatologic History: Reports: None - Infectious Disease History Infectious Disease History: Reports: Hepatitis C - Past Surgical History Head Surgeries/Procedures: Reports: None Social & Family History - Family History Family Medical History: Noncontributory - Tobacco Use Smoking Status *Q: Current Every Day Smoker Years of Tobacco use: 5 Packs/Tins Daily: 1 - Caffeine Use Caffeine Use: Reports: Coffee, Energy Drinks, Soda - Recreational Drug Use Recreational Drug Use: No ED ROS GENERAL - Review of Systems Review Of Systems: ROS reveals no pertinent complaints other than HPI. ED EXAM, RENAL/ - Physical Exam Exam: See Below Exam Limited By: No Limitations General Appearance: Alert, WD/WN, No Apparent Distress Eye Exam: Bilateral Eye: Normal Inspection Ears: Normal External Exam Nose: Normal Inspection Throat/Mouth: Normal Inspection Head: Atraumatic, Normocephalic Neck: Normal Inspection, Supple, Non-Tender Respiratory/Chest: Lungs Clear Cardiovascular: Regular Rate, Rhythm GI/Abdominal: Soft, Non-Tender (Female) Exam: Vaginal Discharge, Vaginal Lesions, Other (multiple 5mm ulcerative lesions with thin white/pierce seeping material more on the right external and internally also noted at the 10 oclock position on cervix. ). No: Vaginal Bleeding Skin Exam: Petechiae (sides of neck bilaterally ) Course - Vital Signs Last Recorded V/S: Last Vital Signs Temp 36.8 C 06/12/18 17:37 Pulse 70 06/12/18 17:37 Resp 18 06/12/18 17:37 BP 130/71 06/12/18 17:37 Pulse Ox 100 06/12/18 17:37 - Orders/Labs/Meds Orders: Active Orders 24 hr Category Date Time Status CHLAMYDIA AND GONORRHEA BY TMA Stat Lab 06/12/18 18:29 Received CULTURE URINE [RM] Stat Lab 06/12/18 17:40 Received VIRAL CULTURE, GENERAL Stat Lab 06/12/18 18:29 Received Labs: Laboratory Tests 06/12/18 06/12/18 Range/Units 17:40 17:40 Urine Color Yellow (YELLOW) Urine Appearance Slightly cloudy (CLEAR) Urine pH 6.0 (5.0-9.0) Ur Specific [place] 1.010 (1.005-1.030) Urine Protein Negative (NEGATIVE) Urine Glucose (UA) Negative (NEGATIVE) Urine Ketones Negative (NEGATIVE) Urine Occult Blood Trace-intact H (NEGATIVE) Urine Nitrite Negative (NEGATIVE) Urine Bilirubin Negative (NEGATIVE) Urine Urobilinogen 0.2 (0.2-1.0) mg/dL Ur Leukocyte Esterase Moderate H (NEGATIVE) Urine RBC 5-10 H /HPF Urine WBC 20-30 H (0-5/HPF) /HPF Ur Epithelial Cells Moderate H /HPF Urine Bacteria Moderate H (0-FEW/HPF) /HPF Urinalysis Comment Urine HCG, Qual Negative Departure - Departure Time of Disposition: 19:05 Disposition: Home, Self-Care 01 Condition: Good Clinical Impression: Bacterial vaginosis, HSV (herpes simplex virus) anogenital infection - Discharge Information *PRESCRIPTION DRUG MONITORING PROGRAM REVIEWED*: No *COPY OF PRESCRIPTION DRUG MONITORING REPORT IN PATIENT VEL: No Instructions: Sexually Transmitted Disease, [id number], Bacterial Vaginosis, [id number], You've Been Prescribed Antibiotics in the Hospital for Infection- [facility] (06/22) Referrals: Corrine Martinez MD [Primary Care Provider] - Forms: ED Department Discharge Additional Instructions: Patient was instructed to have complete pelvic rest for 2 weeks and until lesions resolved. She will also need to notify all sexual partners. Patient is to take Valacyclovir 1g PO BID for 10 days along with Metronidazole 500mg PO TID for 7 days. Patient was also instructed to avoid alcohol while taking Metronidazole as it will cause severe side effects. - My Orders Last 24 Hours: My Active Orders 06/12/18 17:40 CULTURE URINE [RM] Stat 06/12/18 18:29 CHLAMYDIA AND GONORRHEA BY TMA Stat VIRAL CULTURE, GENERAL Stat - Assessment/Plan Last 24 Hours: My Active Orders 06/12/18 17:40 CULTURE URINE [RM] Stat 06/12/18 18:29 CHLAMYDIA AND GONORRHEA BY TMA Stat VIRAL CULTURE, GENERAL Stat <Ashutosh Mckenzie - Last Filed: 06/13/18 07:44> ED EXAM, RENAL/ - Physical Exam Exam: See Below (Female) Exam: Other Neurological: Alert, Oriented, No Motor/Sensory Deficits Psychiatric: Normal Affect, Normal Mood Skin Exam: Petechiae Course - Orders/Labs/Meds Labs: Laboratory Tests 06/12/18 06/12/18 Range/Units 17:40 17:40 Urine Color Yellow (YELLOW) Urine Appearance Slightly cloudy (CLEAR) Urine pH 6.0 (5.0-9.0) Ur Specific [place] 1.010 (1.005-1.030) Urine Protein Negative (NEGATIVE) Urine Glucose (UA) Negative (NEGATIVE) Urine Ketones Negative (NEGATIVE) Urine Occult Blood Trace-intact H (NEGATIVE) Urine Nitrite Negative (NEGATIVE) Urine Bilirubin Negative (NEGATIVE) Urine Urobilinogen 0.2 (0.2-1.0) mg/dL Ur Leukocyte Esterase Moderate H (NEGATIVE) Urine RBC 5-10 H /HPF Urine WBC 20-30 H (0-5/HPF) /HPF Ur Epithelial Cells Moderate H /HPF Urine Bacteria Moderate H (0-FEW/HPF) /HPF Urinalysis Comment Urine HCG, Qual Negative Microbiology 06/12/18 18:29 Wet Prep - Final Vagina - Re-Assessments/Exams Free Text/Narrative Re-Assessment/Exam: 06/12/18 1900 I personally performed or re-performed the physical examination and medical decision making. I have verified all student documentation or findings, including history, physical exam and/or medical decision making. This clearly appears to be vaginal HSV with super imposed BV with the clue cells on the wet prep. We will treat with Valacyclovir and Metronidazole. She needs to alert her partners of the concern. GC/Chla pending. - Assessment/Plan Assessment:: HSV vaginal anal Bacterial vaginosis.
== END 2018-06-12 19:17 | disposition home or self-care (01) ==
LOC: DL.ED 17:16
DX: N76.0 Acute vaginitis (principal); A60.09 Herpesviral infection of other urogenital tract; F17.210 Nicotine dependence, cigarettes, uncomplicated; F32.9 Major depressive disorder, single episode, unspecified; Z79.899 Other long term (current) drug therapy
CPT/HCPCS: 81001; 81025; 87086; 87088; 87186; 87210; 87252; 87491; 87591; 99283

== ENCOUNTER 2019-03-14 17:16 | Observation (INO) | payer MEDICAID ==
[2019-03-14] MEDS ORDERED: Acetaminophen 325 MG Tab PO PRN (18:24)
[2019-03-14] MEDS ORDERED: diphenhydrAMINE 50 MG Cap PO PRN (18:24)
--- NOTE | 2019-03-14 18:40 | PCM.SN ---
- Free Text/Narrative Note: OB H&P 03/14/19 Chief Complaint: elevated PCR HPI: 34 y.o. year old at 38w2d (Estimated Date of Delivery: 03/26/19) who presents for 24 hour urine protein due to elevated PCR (0.5 in clinic) and symptoms of pre-eclampsia. She has been having increased headaches and blurred vision over the last week. She has also still been itching a lot. She has a history of ICP with her last . She has noted contractions when she is walking, but they resolve with resting. She reports active movement. ROS: Negative for vomiting, diarrhea, fever, chills, abdominal pain, hematuria, dysuria, contractions, loss of fluid or bleeding per vagina. Allergies: NKDA Medications: , iron, colace Medical Hx: hep C ab positive, quant negative. H/o meth use. H/o depression, currently in remission. Gestational diabetes with a previous . Surgical Hx: none Family Hx: Family and siblings in [facility] OB Hx: all vaginal deliveries, alternating boy and girl babies. Largest baby was 9lb 0.8oz. H/o GDM with second to last . H/o ICP with last . Social Hx: FOB is Shen Marlon Boland Former smoker. Denies any current smoking, drinking or recreational drug use. Labs: Blood Type: O Positive Rubella: Immune HBSAg: Negative GBS: Positive Gonorrhea/Chlamydia: Negative HIV: Nonreactive RPR: Nonreactive Hep C: Ab positive, quant negative Physical Exam: Vitals: BP 120/72, HR 80, Temp 98.2 Gen: No distress CV: Well-perfused, 2+ distal pulses, regular rate and rhythm, no audible murmurs Resp: Non-labored, symmetrical chest expansion, clear to auscultation Abd: gravid, soft, non tender Ext: Moves all extremities, no edema. SVE: 4/75/-3 in the clinic earlier today FHT: 135, moderate variability, accelerations present, no decelerations apparent CTX: irregular Assessment: 34 y.o. year old at 38w2d who presents for 24 hour urine protein for elevated PCR and pre-eclampsia symptoms. Cat I Strip. Anemia of , last Hgb 10.1 GBS positive H/o ICP and GDM in previous pregnancies H/o IV drug use Plan: - Admit to observation for 24 hour urine protein - NST per shift - Regular diet - Monitor blood pressure Corrine Martinez MD
[2019-03-15] MEDS ORDERED: Prenatal Multivitamin with Calcium/Folic Acid/Iron Tab PO SCH (08:00)
--- NOTE | 2019-03-15 09:04 | PCM.SN ---
- Free Text/Narrative Note: Progress Note 03/15/19 S: Pt reports she is doing well. No acute concerns. She has noted some contractions while she was walking yesterday, but they resolve with rest. Still feels good movement. No bleeding or leaking of fluid. O: Vitals: BP 111/65, HR 85, RR 16 NST: FHR 125, moderate variability, accelerations present, no decelerations appreciated. Contractions, irritable Gen: alert and oriented, no acute distress A: 34 y/o at 38w3d who is here for 24 hour urine protein for elevated PCR. P: - continue urine protein - encouraged pt to walk if she wants to try to go into labor - will plan SVE this afternoon to see if her contractions are making any change - intermittent monitoring - NST per shift Corrine Martinez MD
[2019-03-15 13:43] VITALS: BP 124/77; PULSE 74
--- NOTE | 2019-03-15 21:20 | PCM.SN ---
- Free Text/Narrative Note: Progress Note/Discharge Summary Discharging Physician: Dr. Martinez Admission Diagnoses: 34 yo at 38w2d Proteinuria Headaches Blurred vision Mild intrahepatic cholestasis of Summary of Hospital Course: Gracie is a 34 year of at 38w3d who presented to labor and delivery on for 24 hour urine protein after her PIH labs in the clinic showed a PCR of 0.5. Her blood pressured remained in the normal range and she did well during her stay. She continued to report occasional headaches with blurred vision as well as increased itching. She had ICP during her last and her bile salts have been trending up this . Baby remained category 1 tracing during intermittent monitoring. SVE in the clinic was 4/75/-3 and a few hours before discharge was 4.5/75/-3 without regular contractions noted. She had a fast labor with her second to last delivery and was not able to get pain medications in time. Since baby is doing well, her blood pressures have remained normal, and she is not in active labor, will d/c home in stable condition. Her case was discussed with Dr. Salazar and Dr. Pelayo, who agree that, with her mild ICP and other risk factors for potential complications, she is a candidate to get induced prior to 39 weeks. Patient is going to go home to get her other children set up with care and will return later tonight to begin her labor induction. Discharge Exam: Gen: No distress CV: Well-perfused, 2+ distal pulses Resp: Non-Labored, symmetrical chest expansion Abd: Gravid NST: FHT 135, moderate variability, accelerations present, no decelerations noted Ext: Moves all extremities well Discharge (or Final) Diagnoses: 34 yo at 38w3d Proteinuria Mild ICP History of fast labor Corrine Martinez MD
== END 2019-03-15 17:15 | disposition home or self-care (01) ==
LOC: DL.OBCHECK 17:16 → DL.OB 18:24
PROVIDERS: ADMIT Family Medicine; ATTEND Family Medicine
DX: O12.13 Gestational proteinuria, third trimester (principal); O26.613 Liver and biliary tract disorders in pregnancy, third trimester; O99.013 Anemia complicating pregnancy, third trimester; O98.813 Other maternal infectious and parasitic diseases complicating pregnancy, third trimester; O99.343 Other mental disorders complicating pregnancy, third trimester; K83.1 Obstruction of bile duct; B95.1 Streptococcus, group B, as the cause of diseases classified elsewhere; F32.9 Major depressive disorder, single episode, unspecified; Z3A.38 38 weeks gestation of pregnancy; Z86.32 Personal history of gestational diabetes; Z87.891 Personal history of nicotine dependence
CPT/HCPCS: 59025; 84156; A9270-GY; G0378

== ENCOUNTER 2019-03-15 21:38 | Inpatient (IN) | payer MEDICAID ==
--- NOTE | 2019-03-15 21:32 | PCM.SN ---
- Free Text/Narrative Note: OB H&P 03/16/19 Chief Complaint: induction of labor HPI: 34 y.o. year old at 38w4d (Estimated Date of Delivery: 03/26/19) who presents for induction of labor for mild intrahepatic cholestasis with multiple other risk factors. She was in the hospital yesterday for a 24 hour urine protein due to symptoms of pre-eclampsia and a PCR of 0.5. Her blood pressures remained in the normal limit. She has also still been itching quite a bit. She has a history of ICP with her last and her bile acids have been trending up this with her last one 11 (cut off 10) drawn . She has noted contractions when she is walking, but they resolve with resting. Her cervical exam yesterday was 4.5/75/-3. She has a history fo rapid labors with her second to last baby being delivered without pain medications. She lives at [place] and does not currently have a vehicle. Her case was discussed with Dr. Salazar and Dr. Pelayo and the decision was made that she should be delivered due to the mild ICP in light of her other risk factors. ROS: Negative for diarrhea, fever, chills, abdominal pain, hematuria, dysuria, loss of fluid or bleeding per vagina. Allergies: NKDA Medications: , iron, colace Medical Hx: hep C ab positive, quant negative. H/o meth use. H/o depression, currently in remission. Gestational diabetes with a previous . Surgical Hx: none Family Hx: Family and siblings in MVA OB Hx: all vaginal deliveries, alternating boy and girl babies. Largest baby was 9lb 0.8oz. H/o GDM with second to last as well as rapid labor without time for pain medications. H/o ICP with last . Social Hx: FOB is Shen Mason Jr. Former smoker. Denies any current smoking, drinking or recreational drug use. Labs: Blood Type: O Positive Rubella: Immune HBSAg: Negative GBS: Positive Gonorrhea/Chlamydia: Negative HIV: Nonreactive RPR: Nonreactive Hep C: Ab positive, quant negative Physical Exam: Vitals: 116/78, HR 80, RR 16 Gen: No distress CV: Well-perfused, 2+ distal pulses, regular rate and rhythm, no audible murmurs Resp: Non-labored, symmetrical chest expansion, clear to auscultation Abd: gravid, soft, non tender FHT: 145, moderate variability, accelerations present, no decelerations noted CTX: rare Assessment: 34 y.o. year old at 38w4d who presents for induction of labor for mild intrahepatic cholestasis of with other risk factors present. Cat I Strip. Anemia of , last Hgb 10.1 GBS positive H/o ICP and GDM in previous pregnancies H/o IV drug use H/o rapid labors Plan: - Admit for induction of labor - Routine cares - Given her advanced dilation and GBS status, penicillin to start at 3 am and plan AROM between 7 and 8 am - Pt may have intrathecal if/when desired - Will augment with pitocin if no active labor begins after AROM - Will follow closely Corrine Martinez MD
[~2019-03-15 21:38] MED LIST changes: +Acetaminophen 325 MG Tab PO PRN; +Carboprost Tromethamine 250 MCG/1 ML Amp IM PRN; +Lactated Ringers 1,000 ML IV ONE; +Lidocaine 1% 30 ML SDV INJECT PRN; +Methylergonovine 0.2 MG/1 ML Amp IM PRN; +Misoprostol 400 MCG (4 X 100 MCG TAB) RECTAL PRN; +Ondansetron 4 MG/2 ML SDV IV PRN; +Oxytocin/Normal Saline 30 UNIT/500 ML BAG IV SCH; -Sodium Chloride 0.9% 1,000 ML IV ONE; +Sodium Chloride 0.9% 10 ML Syringe FLUSH PRN; +Tranexamic Acid 1,000 MG in Sodium Chloride 0.9% 100 ML IV PRN
[2019-03-16] MEDS ORDERED: Penicillin G Potassium 5 MILLUNITS in Sodium Chloride 0.9% 100 ML IV ONE (03:00)
[2019-03-16] MEDS: Penicillin G Potassium 3 MILLUNITS in Sodium Chloride 0.9% 100 ML IV SCH ×4 (07:05→20:07)
[2019-03-16] MEDS: Lactated Ringers 1,000 ML IV SCH ×3 (08:00→15:58)
--- NOTE | 2019-03-16 10:08 | US ---
EXAMINATION: OB Ltd 1 or More Fetus SEX: Female AGE: 34 years CLINICAL HISTORY: 34-year-old gravid female with clinical "malpresentation". External version. EDC 26 March 2018. INTERPRETATION: Enlarged uterus with a single live ( heart rate 145 bpm, by monitor) intrauterine gestation now longitudinal lie and CEPHALIC presentation. ( hand present near the internal cervical os) Cervical length currently measures 6.86 cm from t-shaped internal to external os.
--- NOTE | 2019-03-16 10:31 | PCM.PRNOTE ---
- Free Text/Narrative Note: PROCEDURE REPORT Date: 03/16/19 Procedure: External Cephalic Version Surgeon: Corrine Martinez MD Pre-Operative Diagnosis: 34 y.o. year old at 38w4d with cephalic and arm presentation Desires vaginal delivery Mild intrahepatic cholestasis of Cat I Strip. Anemia of , last Hgb 10.1 GBS positive H/o ICP and GDM in previous pregnancies H/o IV drug use H/o rapid labors Post-Operative Diagnosis: same as above Anesthesia: none Specimens: none Complications: none apparent Findings: successful ECV Procedure in Detail: Ultrasound arrived and confirmed presentation. Dr. Salazar was on stand by in case assist was needed. The patient did not receive terbutaline due to the anticipated low force/movement required. Forward roll was attempted 1 times with success in rotating the baby to a vertex presentation. Ultrasound was performed to confirm baby's location and to monitor heart rate. After the procedure, a heart tracing was monitored. Plan: Given potential for unstable lie, will hold off on AROM. Start Pitocin for induction of labor. Corrine Martinez MD
--- NOTE | 2019-03-16 10:31 | PCM.SN ---
- Free Text/Narrative Note: HnP Update: Pt was evaluated this morning for AROM. However, cervix was unable to be assessed due to presentation. US confirmed compound presentation with part of the head and a arm. Discussed with patient about trying an ECV to turn the baby back to full cephalic presentation, including the risks and benefits. She would like to proceed.
[2019-03-16] MEDS ORDERED: fentaNYL 100 MCG/2 ML SDV ONE (11:17)
[2019-03-16] MEDS ORDERED: EPINEPHrine 1 MG/1 ML Amp ONE (11:17)
--- NOTE | 2019-03-16 11:58 | PCM.PRNOTE ---
- Free Text/Narrative Note: Requested to provide analgesia to full term patient in severe pain. Upon entering the room, patient is sitting on edge of bed complaining of severe abdominal/pelvic pain and discomfort. Procedure was discussed with patient including adverse outcomes and expectations. Pt consented to analgesia, SAB/ IT. Pt placed into a proper sitting position. Landmarks for SAB/IT were identified and marked. Hands were washed and appropriate PPE was applied. Back was prepped with betadine x3. A sterile, transparent, fenestrated drape was applied. Excess betadine was removed. Using 3 mL of a 1% lidocaine solution , a skin wheel was placed at the L2/L3 interspace. A 24 ga (4 inch) Pencan spinal needle was inserted until positive for CSF. Negative for heme or paresthesias. Injected fentanyl 30 mcg, sufentanil 25 mcg, and 7.5 mg of a 0.75 % bupivacaine solution with an epi wash. Pt was placed left lateral position for approximately 20 minutes. There were zero complications or adverse outcomes. Will continue to monitor. Procedure Date & Time: 03/16/19 [id number]
[2019-03-16] MEDS ORDERED: fentaNYL 100 MCG/2 ML SDV IVPUSH ONE (16:59)
[2019-03-16] MEDS ORDERED: Acetaminophen 325 MG Tab PO PRN (18:36)
[2019-03-16] MEDS ORDERED: Benzocaine/Menthol 20%-0.5% Spray 56 GM Canister TOP PRN (18:36)
[2019-03-16] MEDS ORDERED: Sodium Chloride 0.9% 10 ML Syringe FLUSH PRN (18:36)
[2019-03-16] MEDS ORDERED: Simethicone 80 MG Tab.Chew PO PRN (18:36)
[2019-03-16] MEDS ORDERED: Zolpidem 5 MG Tab PO PRN (18:36)
[2019-03-16] MEDS ORDERED: Ondansetron 4 MG/2 ML SDV IVPUSH PRN (19:46)
[2019-03-16] MEDS: Ibuprofen 800 MG Tab PO PRN (20:12)
[2019-03-16] MEDS: Docusate Sodium 100 MG Cap PO PRN (20:12)
--- NOTE | 2019-03-16 21:20 | PCM.DEL ---
L & D Note - General Info Date of Service: 03/16/19 (1740) - Delivery Note Labor: Induced by ARM, Induced by Oxytocin Cervical Ripening Method: Oxytocin Delivery Outcome: Livebirth Delivery Method: Spontaneous Vaginal Delivery-Single Infant Delivery Mode: Spontaneous Presentation: Right Occiput Posterior (ROP) Nuchal Cord: None Anesthesia Type: Intrathecal, Nitrous Oxide Amniotic Fluid Description: Bloody (bloody for last 40 minutes with clots) Episiotomy Type: None Laceration: None Placenta: Intact, Spontaneous Cord: 3 Vessels Resuscitation Needed: No Score 1 min: 7 Score 5 min: 8 Second Stage Interventions: Reports: Pushing Effectively Delivery Comments (Free Text/Narrative):: Gracie is a 34 yo at 38w4d EGA who presented for induction of labor for mild ICP, proteinuria of , anemia of , advanced cervical dilation, history of rapid labors and social factors. Category 1 tracing upon admission. She was noted to have compound presentation on arrival and ECV was successfully performed after proper consent was obtained. She was dilated to 4.5 cm at admission. She progressed with augmentation with pitocin. Artificial rupture of membranes around 1200 with clear fluid. She progressed to 7 cm dilated then remained 7 cm during the afternoon. Around 1700 she was checked and found to have some bloody show with some blood clots. She was still 7 cm dilated and high. Dr. Garcia was asked to evaluate in case the fetus had slightly shifted position again. Forebag was ruptured with bloody fluid and dilated to 8cm with a stretchy cervix. She began pushing at approximately 1735 and was able to push past the cervix, then delivered with 2 pushes. Delivered a liveborn female infant. Vigorous with spontaneous cry. Apgars of 7 and 8. weight 3585 g. Placenta delivered spontaneously intact with a 3 vessel cord. IV Pitocin was started shortly after delivery of the placenta. EBL 750 mL. Intact perineum. No vaginal lacerations. Cervix was inspected completely without laceration. Uterus was firm and below the umbilicus. Hemostasis confirmed. Mother and doing well. - General Info Date of Service: 03/16/19 - Patient Data Vitals - Most Recent: Last Vital Signs Temp 98.2 F 03/16/19 17:45 Pulse 69 03/16/19 18:45 Resp 18 03/16/19 16:15 BP 120/66 03/16/19 18:45 Pulse Ox 99 03/16/19 13:15 Weight - Most Recent: 85.729 kg I&O - Last 24 Hours: Intake & Output 03/16/19 03/16/19 03/16/19 06:59 14:59 22:59 Intake Total 2300 Balance 2300 Lab Results Last 24 Hours: Laboratory Results - last 24 hr 03/16/19 03/16/19 03/16/19 Range/Units 00:30 00:55 17:27 WBC 7.3 (5.0-10.0) 10^3/uL RBC 4.27 (4.2-5.4) 10^6/uL Hgb 9.5 L D (12.0-16.0) g/dL Hct 30.6 L (37.0-47.0) % MCV 71.7 L D (80-100) fL MCH 22.2 L (27.0-34.0) pg MCHC 31.0 L (33.0-35.0) g/dL Plt Count 213 (150-450) 10^3/uL Urine Opiates Screen Negative (NEGATIVE) Ur Oxycodone Screen Negative (NEGATIVE) Urine Methadone Screen Negative (NEGATIVE) Ur Barbiturates Screen Negative (NEGATIVE) U Tricyclic Antidepress Negative (NEGATIVE) Ur Phencyclidine Scrn Negative (NEGATIVE) Ur Amphetamine Screen Negative (NEGATIVE) U Methamphetamines Scrn Negative (NEGATIVE) Urine MDMA Screen Negative (NEGATIVE) U Benzodiazepines Scrn Negative (NEGATIVE) Urine Cocaine Screen Negative (NEGATIVE) U Marijuana (THC) Screen Negative (NEGATIVE) Blood Type O POSITIVE Gel Antibody Screen Negative Med Orders - Current: Current Medications Acetaminophen (Tylenol) 650 mg PO Q6H PRN PRN Reason: mild pain or fever Benzocaine/Menthol (Dermoplast [employer] [place]) 0 gm TOP Q4H PRN PRN Reason: Perineal comfort measures Carboprost Tromethamine (Hemabate Ds) 250 mcg IM ASDIRECTED PRN PRN Reason: HEMORRHAGE Docusate Sodium (Colace) 100 mg PO BID PRN PRN Reason: Constipation Last Admin: 03/16/19 20:12 Dose: 100 mg Oxytocin/Sodium Chloride (Pitocin In Ns 30 Unit/500 Ml) 30 unit in 500 mls @ 2 mls/hr IV TITRATE COLETTE; Protocol Last Titration: 03/16/19 19:45 Dose: Infused Oxytocin/Sodium Chloride (Pitocin In Ns 30 Unit/500 Ml) 30 unit in 500 mls @ 2 mls/hr IV TITRATE COLETTE; Protocol Tranexamic Acid 1,000 mg/ (Sodium Chloride) 110 mls @ 660 mls/hr IV ONETIME PRN PRN Reason: Bleeding Ibuprofen (Motrin) 800 mg PO Q8H PRN PRN Reason: Mild Pain or Fever Last Admin: 03/16/19 20:12 Dose: 800 mg Methylergonovine Maleate (Methergine) 0.2 mg IM ASDIRECTED PRN PRN Reason: Hemorrhage Misoprostol (Cytotec) 800 mcg RECTAL ASDIRECTED PRN PRN Reason: Hemorrhage Ondansetron HCl (Zofran) 4 mg IVPUSH Q3H PRN PRN Reason: Nausea/Vomiting Last Admin: 03/16/19 20:12 Dose: 4 mg Prenat Multivit/Firmware Test Engineer/Iron/Folic Ac ( Plus Iron) 1 each PO DAILY COLETTE Simethicone (Simethicone) 80 mg PO Q4H PRN PRN Reason: Gas Sodium Chloride (Saline Flush) 10 ml FLUSH ASDIRECTED PRN PRN Reason: Keep Vein Open Zolpidem Tartrate (Ambien) 5 mg PO BEDTIME PRN PRN Reason: Insomnia Discontinued Medications Acetaminophen (Tylenol) 650 mg PO Q4H PRN PRN Reason: Pain (Mild 1-3) and fever Acetaminophen (Tylenol) 650 mg PO Q4H PRN PRN Reason: Pain/Fever Epinephrine HCl (Adrenalin) Confirm Administered Dose 1 mg .ROUTE .STK-MED ONE Stop: 03/16/19 11:18 Last Admin: 03/16/19 12:42 Dose: Not Given Fentanyl (Sublimaze) Confirm Administered Dose 100 mcg .ROUTE .STK-MED ONE Stop: 03/16/19 11:18 Last Admin: 03/16/19 12:42 Dose: Not Given Fentanyl (Sublimaze) 100 mcg IVPUSH ONETIME ONE Stop: 03/16/19 17:00 Last Admin: 03/16/19 17:00 Dose: 100 mcg Lactated Ringer's (Ringers, Lactated) 1,000 mls @ 999 mls/hr IV BOLUS ONE Stop: 03/15/19 22:27 Last Admin: 03/16/19 12:41 Dose: Not Given Lactated Ringer's (Ringers, Lactated) 1,000 mls @ 125 mls/hr IV ASDIRECTED COLETTE Last Admin: 03/16/19 15:58 Dose: 125 mls/hr Penicillin G Potassium 5 (millunits/ Sodium Chloride) 100 mls @ 200 mls/hr IV ONETIME ONE Stop: 03/16/19 03:29 Last Admin: 03/16/19 02:49 Dose: 200 mls/hr Penicillin G Potassium 3 (millunits/ Sodium Chloride) 100 mls @ 200 mls/hr IV Q4HR [facility] Last Admin: 03/16/19 20:07 Dose: Not Given Lidocaine HCl (Xylocaine-Mpf 1%) 30 ml INJECT ASDIRECTED PRN PRN Reason: Perineal Repair Ondansetron HCl (Zofran) 4 mg IV Q4H PRN PRN Reason: Nausea/Vomiting Last Admin: 03/16/19 11:16 Dose: 4 mg Sodium Chloride (Saline Flush) 10 ml FLUSH ASDIRECTED PRN PRN Reason: Keep Vein Open Sufentanil Citrate (Sufenta) Confirm Administered Dose 50 mcg .ROUTE .STK-MED ONE Stop: 03/16/19 11:18 Last Admin: 03/16/19 12:42 Dose: Not Given - Problem List Review Problem List Initiated/Reviewed/Updated: Yes - Assessment Assessment:: 34 yo G7 now [id number] who delivered via over intact perineum who is doing well - Plan Plan:: Plan: - routine cares - hemoglobin at 2100 - encouraged parental bonding - will follow closely Corrine Martinez MD
[2019-03-17] MEDS ORDERED: Prenatal Multivitamin with Calcium/Folic Acid/Iron Tab PO SCH (09:00)
--- NOTE | 2019-03-17 09:10 | PCM.SN ---
- Free Text/Narrative Note: Post Delivery Day #1 03/17/19 Subjective: Patient is ambulating without assistance and tolerating oral intake. Her pain has been well-controlled, and her bleeding has been minimal. She has not had nausea, vomiting, blurred vision, diarrhea, shortness of breath, or any other complaints. She is bottle feeding. Objective: Vitals stable Gen: No distress CV: Well-perfused, 2+ distal pulses Resp: Non-labored, symmetrical chest expansion Abd: Fundus is firm and below umbilicus. Ext: Moves all extremities Well, no edema. Assessment: Status post ( day #1) who is doing well. Her hemoglobins have been stable around 9. 34 y.o. year old at 38w4d External Cephalic Version Mild intrahepatic cholestasis of Cat I Strip. Anemia of GBS positive, treated H/o ICP and GDM in previous pregnancies H/o IV drug use H/o rapid labors Post hemorrhage - EBL 750 mL Placental abruption Plan: - Routine nursing - vitamin - Likely discharge later today or tomorrow Corrine Martinez MD
[2019-03-17] MEDS: Docusate Sodium 100 MG Cap PO PRN (09:40)
[2019-03-17] MEDS: Ibuprofen 800 MG Tab PO PRN (09:40)
[2019-03-17 09:48] VITALS: BP 118/63; PULSE 66
--- NOTE | 2019-03-17 17:48 | PCM.SN ---
- Free Text/Narrative Note: Progress Note/Discharge Summary Admit date: 03/16/19 Discharge date: 03/17/19 Delivering Physician: Dr. Martinez Admission Diagnoses: 34 y.o. year old at 38w4d Mild intrahepatic cholestasis of Anemia of GBS positive H/o ICP and GDM in previous pregnancies H/o IV drug use H/o rapid labors Summary of Hospital Course: Gracie is a 34 yo at 38w4d EGA who presented for induction of labor for mild ICP, proteinuria of , anemia of , advanced cervical dilation, history of rapid labors and social factors. Category 1 tracing upon admission. She was noted to have compound presentation on arrival and ECV was successfully performed after proper consent was obtained. She was dilated to 4.5 cm at admission. She progressed with augmentation with pitocin. Artificial rupture of membranes around 1200 with clear fluid. She progressed to 7 cm dilated then remained 7 cm during the afternoon. Around 1700 she was checked and found to have some bloody show with some blood clots. She was still 7 cm dilated and high. Dr. Garcia was asked to evaluate in case the fetus had slightly shifted position again. Forebag was ruptured with bloody fluid and dilated to 8cm with a stretchy cervix. She began pushing at approximately 1735 and was able to push past the cervix, then delivered with 2 pushes. Delivered a liveborn female . Vigorous infant with spontaneous cry. Apgars of 7 and 8. weight 3585 g. Placenta delivered spontaneously intact with a 3 vessel cord. IV Pitocin was started shortly after delivery of the placenta. EBL 750 mL. Intact perineum. No vaginal lacerations. Cervix was inspected completely without laceration. Uterus was firm and below the umbilicus. Hemostasis confirmed. Mother and doing well. The patient had an unremarkable course. By day 1, the patient was doing well; ambulating, voiding, and tolerating general diet. Her pain was well controlled with oral pain medications, and was she was discharged to home. Admission hemoglobin was 9.5 gm/dL. Discharge hemoglobin was 9.0 gm/dL. Discharge Exam: Gen: No distress CV: Well-perfused, 2+ distal pulses Resp: Non-Labored, symmetrical chest expansion Abd: Fundus is firm and below umbilicus. Ext: Moves all extremities well, no edema. Discharge (or Final) Diagnoses: 34 y.o. year old at 38w4d External Cephalic Version Mild intrahepatic cholestasis of Cat I Strip. Anemia of GBS positive, treated H/o ICP and GDM in previous pregnancies H/o IV drug use H/o rapid labors Post hemorrhage - EBL 750 mL Placental abruption Discharge Details: Admission Condition: good Discharged Condition: good Disposition: Home Discharge Medications: over the counter ibuprofen Diet: regular diet Activity: no heavy lifting for 2 weeks, pelvic rest for 6 weeks. Follow-up with Dr. Martinez in 6-8 weeks for visit. Corrine Martinez MD
[2019-03-17] MEDS ORDERED: EPINEPHrine 1 MG/1 ML Amp ONE (18:29)
[2019-03-17] MEDS ORDERED: fentaNYL 100 MCG/2 ML SDV ITHECAL ONE (18:29)
== END 2019-03-17 18:30 | disposition home or self-care (01) | DRG 805 ==
LOC: DL.OBCHECK 21:38 → UNDOADMOB 03-16 00:01 → DL.OB 03-16 00:01 → UNDOADMOB 03-16 00:20 → INTOOBSV 03-16 17:02 → OBSVTOIN 03-16 17:02 → DL.OB 03-16 17:40
PROVIDERS: ADMIT Family Medicine; ATTEND Family Medicine
PROC: 10E0XZZ Delivery of Products of Conception, External Approach (ICD-10-PCS; principal; 2019-03-16)
PROC: 10907ZC Drainage of Amniotic Fluid, Therapeutic from Products of Conception, Via Natural or Artificial Opening (ICD-10-PCS; 2019-03-16)
PROC: 3E033VJ Introduction of Other Hormone into Peripheral Vein, Percutaneous Approach (ICD-10-PCS; 2019-03-16)
DX: O26.62 Liver and biliary tract disorders in childbirth (principal); K83.1 Obstruction of bile duct; Z37.0 Single live birth; O99.02 Anemia complicating childbirth; O99.824 Streptococcus B carrier state complicating childbirth; Z79.899 Other long term (current) drug therapy; Z3A.38 38 weeks gestation of pregnancy; Z87.891 Personal history of nicotine dependence
CPT/HCPCS: 36415; 51702; 59025; 59409; 76815; 80305-QW; 82542; 85014; 85018; 85027; 86850; 86900; 86901; A9270-GY; J0171; J2405; J2540; J2590; J3010; J7050; J7120

== ENCOUNTER 2019-04-23 14:42 | Emergency (ER) | payer MEDICAID ==
[2019-04-23 14:29] VITALS: BP 140/92; PULSE 97
[2019-04-23] MEDS ORDERED: Sodium Chloride 0.9% 1,000 ML IV ONE (15:04)
[2019-04-23 15:23] LABS: ANION GAP 12.3; CHLORIDE,CL 106 mmol/L (101-111); SODIUM,NA 138 mmol/L (135-145)
--- NOTE | 2019-04-23 15:58 | EDM.PDOCBH ---
ED HPI GENERAL MEDICAL PROBLEM - General Chief Complaint: Behavioral/Psych Stated Complaint: [facility] - Related Data Allergies Allergy/AdvReac Type Severity Reaction Status Date / Time No Known Allergies Allergy Verified 04/23/19 14:29 Past Medical History - Past Health History Medical/Surgical History: Denies Medical/Surgical History HEENT History: Reports: None Cardiovascular History: Reports: None Respiratory History: Reports: None Gastrointestinal History: Reports: None Genitourinary History: Reports: UTI, Recurrent ESTIMATING MANAGER History: Reports: , Other (See Below) Other ESTIMATING MANAGER History: five pregnancies, one miscarriage - 2003. 2017, 2017,2015,2007,2006 Musculoskeletal History: Reports: None Neurological History: Reports: None Psychiatric History: Reports: Anxiety, Depression, Other (See Below) Other Psychiatric History: History of PPD Endocrine/Metabolic History: Reports: Diabetes, Gestational, Other (See Below) Other Endocrine/Metabolic History: hx of GDM Hematologic History: Reports: Anemia, Other (See Below) Other Hematologic History: hep c Immunologic History: Reports: None Oncologic (Cancer) History: Reports: None Dermatologic History: Reports: None - Infectious Disease History Infectious Disease History: Reports: Hepatitis C - Past Surgical History Head Surgeries/Procedures: Reports: None Endocrine Surgical History: Reports: None Dermatological Surgical History: Reports: None Social & Family History - Family History Family Medical History: Noncontributory - Tobacco Use Smoking Status *Q: Current Every Day Smoker Years of Tobacco use: 15 Packs/Tins Daily: 0.5 Used Tobacco, but Quit: No Second Hand Smoke Exposure: Yes - Caffeine Use Caffeine Use: Reports: Coffee, Energy Drinks, Soda, Tea - Recreational Drug Use Recreational Drug Use: Yes Drug Use in Last 12 Months: Yes Recreational Drug Type: Reports: Methamphetamine Recreational Drug Use Frequency: Binges Recreational Drug Last Use: 04-23-2019 COURSE, BEHAVIORAL HEALTH COMP - Course Vital Signs: Last Vital Signs Temp 97.3 F 04/23/19 14:22 Pulse 97 04/23/19 14:22 Resp 18 04/23/19 14:22 BP 140/92 H 04/23/19 14:22 Pulse Ox 100 04/23/19 14:22 Departure - Discharge Information Sepsis Event Note - Evaluation Sepsis Screening Result: No Definite Risk - Focused Exam Vital Signs: Vital Signs Temp Pulse Resp BP Pulse Ox 04/23/19 14:22 97.3 F 97 18 140/92 H 100 Date Exam was Performed: 04/23/19 Time Exam was Performed: 15:00
--- NOTE | 2019-04-23 16:41 | EDM.PDOCBH ---
Scribed by Araceli Smith 04/23/19 1641 for Suhail Ulrich NP ED HPI GENERAL MEDICAL PROBLEM - General Chief Complaint: Behavioral/Psych Stated Complaint: [facility]BULANCE Time Seen by Provider: 04/23/19 14:50 Source of Information: Reports: Patient, RN, RN Notes Reviewed History Limitations: Reports: No Limitations - History of Present Illness INITIAL COMMENTS - FREE TEXT/NARRATIVE: A 34-year-old female who presents with EMS after family called stating that she was hallucinating. Patient reports she needed to get out of your home because she felt like she was getting choked. She reports relationship difficulties with her and they are going court for meth abuse and custody of her kids. Patient had been sober for 2 months and met with friends who were talking about injecting meth. She states she injected some meth associated with her friends until 5 A.M. this morning. She returned home, had breakfast and went to sleep. Her woke her up for lunch and patient was paranoid about her putting images in her phone and was calling piece of paper a car. Her called 911 and patient was brought in for evaluation. She is alert and oriented. She denies any hallucinations or thoughts of suicide. 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 2018, 2017,2015,2007,2006 Musculoskeletal History: Reports: None Neurological History: Reports: None Psychiatric History: Reports: Anxiety, Depression, Other (See Below) Other Psychiatric History: History of PPD Endocrine/Metabolic History: Reports: Diabetes, Gestational, Other (See Below) Other Endocrine/Metabolic History: hx of GDM Hematologic History: Reports: Anemia, Other (See Below) Other Hematologic History: hep c Immunologic History: Reports: None Oncologic (Cancer) History: Reports: None Dermatologic History: Reports: None - Infectious Disease History Infectious Disease History: Reports: Hepatitis C - Past Surgical History Head Surgeries/Procedures: Reports: None Endocrine Surgical History: Reports: None Dermatological Surgical History: Reports: None Social & Family History - Family History Family Medical History: Noncontributory - Tobacco Use Smoking Status *Q: Current Every Day Smoker Years of Tobacco use: 15 Packs/Tins Daily: 0.5 Used Tobacco, but Quit: No Second Hand Smoke Exposure: Yes - Caffeine Use Caffeine Use: Reports: Coffee, Energy Drinks, Soda, Tea - Recreational Drug Use Recreational Drug Use: Yes Drug Use in Last 12 Months: Yes Recreational Drug Type: Reports: Methamphetamine Recreational Drug Use Frequency: Binges Recreational Drug Last Use: 04-23-2019 ED ROS GENERAL - Review of Systems Review Of Systems: Comprehensive ROS is negative, except as noted in HPI. ED EXAM, BEHAVIORAL HEALTH - Physical Exam Exam: See Below Exam Limited By: No Limitations General Appearance: Alert, WD/WN, No Apparent Distress Eye Exam: Bilateral Eye: EOMI, Normal Inspection, PERRL Ears: Normal External Exam, Normal Canal, Hearing Grossly Normal, Normal TMs Nose: Normal Inspection, Normal Mucosa, No Blood Throat/Mouth: Normal Inspection, Normal Lips, Normal Teeth, Normal Gums, Normal Oropharynx, Normal Voice, No Airway Compromise Head: Atraumatic, Normocephalic Neck: Normal Inspection, Supple, Non-Tender, Full Range of Motion Respiratory/Chest: No Respiratory Distress Cardiovascular: Normal Peripheral Pulses, Regular Rate, Rhythm, No Edema, No Gallop, No JVD, No Murmur, No Rub GI/Abdominal: Normal Bowel Sounds, Soft, Non-Tender, No Organomegaly, No Distention, No Abnormal Bruit, No Mass (Female) Exam: Deferred Rectal (Female) Exam: Deferred Back Exam: Normal Inspection, Full Range of Motion, NT Extremities: Normal Inspection, Normal Range of Motion, Non-Tender, Normal Capillary Refill, No Pedal Edema Neurological: Alert, Normal Mood/Affect, CN II-XII Intact, Normal Cognition, Normal Gait, Normal Reflexes, No Motor/Sensory Deficits, Oriented x 3 Psychiatric: Alert, Normal Affect, Normal Cognition, Normal Mood, Oriented Skin Exam: Warm, Dry, Intact, Normal color, No rash COURSE, BEHAVIORAL HEALTH COMP - Course Vital Signs: Last Vital Signs Temp 97.3 F 04/23/19 14:22 Pulse 97 04/23/19 14:22 Resp 18 04/23/19 14:22 BP 140/92 H 04/23/19 14:22 Pulse Ox 100 04/23/19 14:22 Orders, Labs, Meds: Laboratory Tests 04/23/19 04/23/19 04/23/19 Range/Units 14:56 14:56 15:40 WBC 3.7 L (5.0-10.0) 10^3/uL RBC 4.52 (4.2-5.4) 10^6/uL Hgb 10.3 L (12.0-16.0) g/dL Hct 32.7 L (37.0-47.0) % MCV 72.3 L (80-100) fL MCH 22.8 L (27.0-34.0) pg MCHC 31.5 L (33.0-35.0) g/dL Plt Count 264 (150-450) 10^3/uL Neut % (Auto) 49.2 (42.2-75.2) % Lymph % (Auto) 39.4 (20.5-50.1) % Drew % (Auto) 10.0 H (2-8) % Eos % (Auto) 1.1 (1.0-3.0) % Baso % (Auto) 0.3 (0.0-1.0) % Sodium 138 (135-145) mmol/L Potassium 3.3 L (3.6-5.0) mmol/L Chloride 106 (101-111) mmol/L Carbon Dioxide 23.0 (21.0-31.0) mmol/L Anion Gap 12.3 BUN 7 (7-18) mg/dL Creatinine 0.8 (0.6-1.3) mg/dL Est Cr Clr Drug Dosing 97.27 mL/min Estimated GFR (MDRD) > 60 BUN/Creatinine Ratio 8.75 Glucose 88 (74-105) mg/dL Calcium 8.9 (8.4-10.2) mg/dl Total Bilirubin 0.8 (0.2-1.0) mg/dL AST 34 (10-42) IU/L ALT 25 (10-60) IU/L Alkaline Phosphatase 63 (42-121) IU/L Total Protein 7.1 (6.7-8.2) g/dl Albumin 4.1 (3.2-5.5) g/dl Globulin 3.0 Albumin/Globulin Ratio 1.37 Urine Opiates Screen Negative (NEGATIVE) Ur Oxycodone Screen Negative (NEGATIVE) Urine Methadone Screen Negative (NEGATIVE) Ur Barbiturates Screen Negative (NEGATIVE) U Tricyclic Antidepress Negative (NEGATIVE) Ur Phencyclidine Scrn Negative (NEGATIVE) Ur Amphetamine Screen Positive H (NEGATIVE) U Methamphetamines Scrn Positive H (NEGATIVE) Urine MDMA Screen Negative (NEGATIVE) U Benzodiazepines Scrn Negative (NEGATIVE) Urine Cocaine Screen Negative (NEGATIVE) U Marijuana (THC) Screen Negative (NEGATIVE) Medications Discontinued Medications Generic Name Dose Route Start Last Admin Trade Name Freq PRN Reason Stop Dose Admin Sodium Chloride 1,000 mls @ 1,000 mls/hr 04/23/19 15:04 04/23/19 15:00 Normal Saline IV 04/23/19 16:03 1,000 mls/hr .BOLUS ONE Administration Re-Assessment/Re-Exam: Reviewed lab results with patient. Encouraged her to follow up in the clinic in 1 day for CBC and potassium redraw. Also encouraged her substance abuse treatment. Departure - Departure Time of Disposition: 16:37 Disposition: Home, Self-Care 01 Condition: Good Clinical Impression: Polysubstance abuse, Microcytic anemia, Hypokalemia - Discharge Information Instructions: Preventing Iron Deficiency Anemia, Adult, Hypokalemia, Potassium Content of Foods Forms: ED Department Discharge Additional Instructions: Encouraged patient to eat foods high in iron and potassium. Instructions also included in the ADS summary. Encouraged her substance abuse treatment. Follow up in clinic in 1 days for potassium and CBC reevaluation. Sepsis Event Note - Evaluation Sepsis Screening Result: No Definite Risk - Focused Exam Vital Signs: Vital Signs Temp Pulse Resp BP Pulse Ox 04/23/19 14:22 97.3 F 97 18 140/92 H 100 Date Exam was Performed: 04/23/19 Time Exam was Performed: 16:41 I have read and agree with the documentation that has been completed regarding this visit. By signing this record, I attest that the documentation was completed in my physical presence and is an accurate record of the encounter.
== END 2019-04-23 17:00 | disposition home or self-care (01) ==
LOC: DL.ED 14:42
DX: E87.6 Hypokalemia (principal); D50.9 Iron deficiency anemia, unspecified; F19.10 Other psychoactive substance abuse, uncomplicated; F17.210 Nicotine dependence, cigarettes, uncomplicated
CPT/HCPCS: 36415; 80053; 80305; 85025; 96360; 99285; J7030

== ENCOUNTER 2020-01-04 22:18 | Emergency (ER) | payer MEDICAID ==
--- NOTE | 2020-01-04 22:21 | EDM.PDOC ---
ED HPI GENERAL MEDICAL PROBLEM - General Chief Complaint: General Stated Complaint: AMBULANCE Time Seen by Provider: 01/04/20 22:20 Source of Information: Reports: Patient History Limitations: Reports: No Limitations - History of Present Illness INITIAL COMMENTS - FREE TEXT/NARRATIVE: pos mynorid 10 days ago, [address] Weber OB aware. been having general body aches and tired. Left Lower Abdomen Pain Score (Numeric/FACES): 9 - Related Data Allergies Allergy/AdvReac Type Severity Reaction Status Date / Time No Known Allergies Allergy Verified 01/04/20 22:18 Home Meds: Home Meds . 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 2019,2017,2017,2015,2007,2006. hx of macrosomia. hx of ICP Musculoskeletal History: Reports: None Neurological History: Reports: None Psychiatric History: Reports: Anxiety, Depression, Other (See Below) Other Psychiatric History: History of PPD Endocrine/Metabolic History: Reports: Diabetes, Gestational, Other (See Below) Other Endocrine/Metabolic History: hx of GDM Hematologic History: Reports: Anemia, Other (See Below) Other Hematologic History: hep c Immunologic History: Reports: None Oncologic (Cancer) History: Reports: None Dermatologic History: Reports: None - Infectious Disease History Infectious Disease History: Reports: Hepatitis C - Past Surgical History Head Surgeries/Procedures: Reports: None Endocrine Surgical History: Reports: None Dermatological Surgical History: Reports: None Social & Family History - Family History Family Medical History: Noncontributory - Caffeine Use Caffeine Use: Reports: Energy Drinks, Soda, Tea ED ROS GENERAL - Review of Systems Review Of Systems: Comprehensive ROS is negative, except as noted in HPI. ED EXAM, GENERAL - Physical Exam Exam: See Below Exam Limited By: No Limitations General Appearance: Alert, WD/WN, Mild Distress, Other (discomfort) Ears: Normal External Exam, Normal Canal, Hearing Grossly Normal Throat/Mouth: Normal Voice, No Airway Compromise Head: Atraumatic Neck: Non-Tender, Full Range of Motion Respiratory/Chest: No Respiratory Distress, No Accessory Muscle Use, Rhonchi. No: Decreased Breath Sounds, Prolonged Expiration Cardiovascular: Regular Rate, Rhythm GI/Abdominal: Soft, Non-Tender (Female) Exam: Deferred Rectal (Female) Exam: Deferred Neurological: Alert, Oriented, Normal Cognition, Normal Gait, No Motor/Sensory Deficits Psychiatric: Flat Affect Skin Exam: Warm, Dry, Normal Color Lymphatic: No Adenopathy Course - Vital Signs Last Recorded V/S: Last Vital Signs Temp 36.2 C 01/04/20 22:13 Pulse 101 H 01/04/20 22:13 Resp 20 01/04/20 22:13 BP 99/58 L 01/04/20 22:13 Pulse Ox 98 01/04/20 22:13 - Orders/Labs/Meds Orders: Active Orders 24 hr Category Date Time Status CULTURE BLOOD [BC] Stat Lab 01/04/20 22:30 Received Labs: Laboratory Tests 01/04/20 01/04/20 01/04/20 Range/Units 22:30 22:30 22:30 WBC 8.5 (5.0-10.0) 10^3/uL RBC 4.03 L (4.2-5.4) 10^6/uL Hgb 7.9 L D (12.0-16.0) g/dL Hct 26.4 L (37.0-47.0) % MCV 65.5 L D (80-100) fL MCH 19.6 L (27.0-34.0) pg MCHC 29.9 L (33.0-35.0) g/dL Plt Count 219 (150-450) 10^3/uL Neut % (Auto) 85.0 H (42.2-75.2) % Lymph % (Auto) 9.4 L (20.5-50.1) % [place] % (Auto) 5.5 (2-8) % Eos % (Auto) 0.0 L (1.0-3.0) % Baso % (Auto) 0.1 (0.0-1.0) % Sodium 133 L (136-145) mmol/L Potassium 3.6 (3.5-5.1) mmol/L Chloride 99 (98-107) mmol/L Carbon Dioxide 21 (21-32) mmol/L Anion Gap 16.6 H (7-13) mEq/L BUN 7 (7-18) mg/dL Creatinine 0.86 (0.55-1.02) mg/dL Est Cr Clr Drug Dosing 87.10 mL/min Estimated GFR (MDRD) > 60 BUN/Creatinine Ratio 8.1 (No establ ref range) Glucose 92 (74-99) mg/dL Lactic Acid 1.5 (0.4-2.0) mmol/L Uric Acid 4.3 (2.6-6.0) mg/dL Calcium 7.9 L (8.5-10.1) mg/dL Total Bilirubin 0.8 (0.2-1.0) mg/dL AST 25 (15-37) U/L ALT 12 L (14-59) U/L Alkaline Phosphatase 224 H (46-116) U/L Lactate Dehydrogenase 203 (81-234) U/L Total Protein 6.5 (6.4-8.2) g/dL Albumin 2.1 L (3.4-5.0) g/dL Globulin 4.4 Albumin/Globulin Ratio 0.48 Urine Color (YELLOW) Urine Appearance (CLEAR) Urine pH (5.0-9.0) Ur Specific [place] (1.005-1.030) Urine Protein (NEGATIVE) Urine Glucose (UA) (NEGATIVE) Urine Ketones (NEGATIVE) Urine Occult Blood (NEGATIVE) Urine Nitrite (NEGATIVE) Urine Bilirubin (NEGATIVE) Urine Urobilinogen (0.2-1.0) mg/dL Ur Leukocyte Esterase (NEGATIVE) Urine Opiates Screen (NEGATIVE) Ur Oxycodone Screen (NEGATIVE) Urine Methadone Screen (NEGATIVE) Ur Barbiturates Screen (NEGATIVE) U Tricyclic Antidepress (NEGATIVE) Ur Phencyclidine Scrn (NEGATIVE) Ur Amphetamine Screen (NEGATIVE) U Methamphetamines Scrn (NEGATIVE) Urine MDMA Screen (NEGATIVE) U Benzodiazepines Scrn (NEGATIVE) Urine Cocaine Screen (NEGATIVE) U Marijuana (THC) Screen (NEGATIVE) 01/04/20 01/04/20 Range/Units 23:46 23:46 WBC (5.0-10.0) 10^3/uL RBC (4.2-5.4) 10^6/uL Hgb (12.0-16.0) g/dL Hct (37.0-47.0) % MCV (80-100) fL MCH (27.0-34.0) pg MCHC (33.0-35.0) g/dL Plt Count (150-450) 10^3/uL Neut % (Auto) (42.2-75.2) % Lymph % (Auto) (20.5-50.1) % Storey % (Auto) (2-8) % Eos % (Auto) (1.0-3.0) % Baso % (Auto) (0.0-1.0) % Sodium (136-145) mmol/L Potassium (3.5-5.1) mmol/L Chloride (98-107) mmol/L Carbon Dioxide (21-32) mmol/L Anion Gap (7-13) mEq/L BUN (7-18) mg/dL Creatinine (0.55-1.02) mg/dL Est Cr Clr Drug Dosing mL/min Estimated GFR (MDRD) BUN/Creatinine Ratio (No establ ref range) Glucose (74-99) mg/dL Lactic Acid (0.4-2.0) mmol/L Uric Acid (2.6-6.0) mg/dL Calcium (8.5-10.1) mg/dL Total Bilirubin (0.2-1.0) mg/dL AST (15-37) U/L ALT (14-59) U/L Alkaline Phosphatase (46-116) U/L Lactate Dehydrogenase (81-234) U/L Total Protein (6.4-8.2) g/dL Albumin (3.4-5.0) g/dL Globulin Albumin/Globulin Ratio Urine Color Dark yellow (YELLOW) Urine Appearance Clear (CLEAR) Urine pH 6.5 (5.0-9.0) Ur Specific [place] 1.010 (1.005-1.030) Urine Protein Negative (NEGATIVE) Urine Glucose (UA) Negative (NEGATIVE) Urine Ketones Trace H (NEGATIVE) Urine Occult Blood Negative (NEGATIVE) Urine Nitrite Negative (NEGATIVE) Urine Bilirubin Negative (NEGATIVE) Urine Urobilinogen 4.0 H (0.2-1.0) mg/dL Ur Leukocyte Esterase Negative (NEGATIVE) Urine Opiates Screen Negative (NEGATIVE) Ur Oxycodone Screen Negative (NEGATIVE) Urine Methadone Screen Negative (NEGATIVE) Ur Barbiturates Screen Negative (NEGATIVE) U Tricyclic Antidepress Negative (NEGATIVE) Ur Phencyclidine Scrn Negative (NEGATIVE) Ur Amphetamine Screen Negative (NEGATIVE) U Methamphetamines Scrn Negative (NEGATIVE) Urine MDMA Screen Negative (NEGATIVE) U Benzodiazepines Scrn Negative (NEGATIVE) Urine Cocaine Screen Negative (NEGATIVE) U Marijuana (THC) Screen Negative (NEGATIVE) Meds: Medications Discontinued Medications Generic Name Dose Route Start Last Admin Trade Name Charley PRN Reason Stop Dose Admin Lactated Ringer's 1,000 mls @ 999 mls/hr 01/04/20 22:51 01/04/20 23:03 Ringers, Lactated IV 01/04/20 23:51 999 mls/hr .BOLUS ONE Administration - Re-Assessments/Exams Free Text/Narrative Re-Assessment/Exam: 01/05/20 00:30 OB arrived eval pt. baby doing well, Dr Pelayo arrived eval pt and ordered LR and need to check u/a. results discussed with pt. Departure - Departure Time of Disposition: 01:00 Disposition: Home, Self-Care 01 Condition: Good Clinical Impression: Flu syndrome - Discharge Information Instructions: Upper Respiratory Infection, Adult, [id number] Referrals: PCP,None [Primary Care Provider] - Forms: ED Department Discharge Additional Instructions: 1) drink lots of liquids 2) take tylenol for fever and discomfort 3) recheck if there is any change or concern 4) follow up with Dr Webre Tuesday Sepsis Event Note (ED) - Focused Exam Vital Signs: Vital Signs Temp Pulse Resp BP Pulse Ox 01/04/20 22:13 36.2 C 101 H 20 99/58 L 98 - My Orders Last 24 Hours: My Active Orders 01/04/20 22:30 CULTURE BLOOD [BC] Stat - Assessment/Plan Last 24 Hours: My Active Orders 01/04/20 22:30 CULTURE BLOOD [BC] Stat
[2020-01-04 22:31] VITALS: BP 99/58; PULSE 101
[2020-01-04] MEDS ORDERED: Lactated Ringers 1,000 ML IV ONE (22:51)
[2020-01-04 23:04] LABS: ANION GAP 16.6 mEq/L (7-13); CHLORIDE,CL 99 mmol/L (98-107); SODIUM,NA 133 mmol/L (136-145)
== END 2020-01-05 01:06 | disposition home or self-care (01) ==
LOC: DL.ED 22:18
DX: O99.513 Diseases of the respiratory system complicating pregnancy, third trimester (principal); J11.1 Influenza due to unidentified influenza virus with other respiratory manifestations; Z3A.35 35 weeks gestation of pregnancy; Z86.19 Personal history of other infectious and parasitic diseases
CPT/HCPCS: 36415; 80053; 80305; 81003; 83605; 83615; 84550; 85025; 87040; 99283; 99284; J7120

== ENCOUNTER 2020-01-16 00:52 | Inpatient (IN) | payer MEDICAID ==
[~2020-01-16 00:52] MED LIST changes: -Ondansetron 4 MG/2 ML SDV IV PRN; +Ondansetron 4 MG/2 ML SDV IVPUSH PRN; -Oxytocin/Normal Saline 30 UNIT/500 ML BAG IV SCH
[2020-01-16] MEDS: Lactated Ringers 1,000 ML IV SCH ×2 (02:05→08:19)
[2020-01-16] MEDS: Oxytocin/Normal Saline 30 UNIT/500 ML BAG IV SCH ×2 (02:09→13:32)
[2020-01-16] MEDS ORDERED: fentaNYL 100 MCG/2 ML SDV ONE (07:52)
[2020-01-16] MEDS ORDERED: EPINEPHrine 1 MG/1 ML Amp ONE ×3 (07:52→14:46)
--- NOTE | 2020-01-16 08:23 | PCM.PRNOTE ---
- Free Text/Narrative Note: Requested to provide analgesia to full term patient in severe pain. Upon entering the room, patient is sitting on edge of bed complaining of severe abdominal/pelvic pain and discomfort. Procedure was discussed with patient including adverse outcomes and expectations. Pt consented to analgesia, SAB/IT. Pt placed into a proper sitting position. Landmarks for SAB/IT were identified and marked. Hands were washed and appropriate PPE was applied. Back was prepped with betadine x3. A sterile, transparent, fenestrated drape was applied. Excess betadine was removed. Using 3 mL of a 1% lidocaine solution, a skin wheel was placed at the L2/L3 interspace. A 24 ga (4 inch) Pencan spinal needle was inserted until positive for CSF. Negative for heme or paresthesias. Injected fentanyl 30 mcg, sufentanil 25 mcg, and 7.5 mg of a 0.75% bupivacaine solution with an epi wash. Pt was placed left lateral tilt position for approximately 20 minutes. There were zero complications or adverse outcomes. Will continue to monitor. Procedure Date & Time: 01/16/20 [id number]
--- NOTE | 2020-01-16 08:49 | PCM.SN.2 ---
<Ange Pedroza - Last Filed: 01/16/20 14:36> - Free Text/Narrative Note: DOS 01/16/2020 Time 0145 PROCEDURE NOTE: Amniotomy aka Assisted Rupture of Membranes Cervix:/-2 Position: vertex Membranes: intact Verbal consent was obtained from the patient, reasons for the procedure were outlined along with the risks and benefits of the procedure reviewed with the patient. These include potential problems with an amniotomy such as intrauterine infection from digital or instrumental examination, early decelerations of the heart, potential for cord prolapse, bleeding from vessels, vessels of the cervix or low-lying placenta if low lying. The uterus was palpated and the position of the fetus confirmed as cephalic/vertex. SVE was performed confirming with a cervix dilation of 3cm and that there are intact membranes with adequate bulging amniotic sac for rupture, no cord was palpated near the presenting part or alongside the head. The procedure was done using an amnihook in the usual fashion the amniotic and chorionic membranes were not split and did not release liquor of immediately. The patient tolerated the procedure very well and the child was closely monitored by EFM during the procedure and also tolerated the procedure well. Shortly after patient began leaking copius amounts of clear fluid Ange Pedroza MD Boat Loader [employer] PGY3 <Louie Weber - Last Filed: 01/17/20 10:41> - Free Text/Narrative Note: seen and agreed-DCW
--- NOTE | 2020-01-16 08:51 | PCM.SN.2 ---
<Ange Pedroza R - Last Filed: 01/16/20 08:49> - Free Text/Narrative Note: DOS 01/16/2020 Time 0630 visited patient for cervical check She is starting to feel contractions more but still moderately She has been leaking fluid since admit check 2 FHT cat1 Continue with pit recheckin ~1 hour due to history of progressing fast continue intrapartum care <Louie Weber C - Last Filed: 01/16/20 12:42> - Free Text/Narrative Note: Seen and agreed DCW
--- NOTE | 2020-01-16 08:53 | PCM.SN.2 ---
<Ange Pedroza R - Last Filed: 01/16/20 08:51> - Free Text/Narrative Note: DOS 01/16/2020 TOS 0750 visited patient for cervical check contractions are palpating and feel stronger Gracie is reporting becoming more uncomfortable /-2 FHT cat 1 plan for intrathecal continue with pitocin recheck in 2 hours epehl <Louie Weber C - Last Filed: 01/16/20 12:41> - Free Text/Narrative Note: seen and agreed DCW
[2020-01-16] MEDS ORDERED: Oxytocin 10 Units/1 ML SDV IM PRN (12:33)
[2020-01-16] MEDS ORDERED: Docusate Sodium 100 MG Cap PO PRN (12:33)
[2020-01-16] MEDS ORDERED: Sodium Chloride 0.9% 10 ML Syringe FLUSH PRN (12:33)
[2020-01-16] MEDS ORDERED: Zolpidem 5 MG Tab PO PRN (12:33)
[2020-01-16] MEDS ORDERED: Simethicone 80 MG Tab.Chew PO PRN (12:33)
[2020-01-16] MEDS ORDERED: Benzocaine/Menthol 20%-0.5% Spray 56 GM Canister TOP PRN (12:33)
--- NOTE | 2020-01-16 12:42 | PCM.DEL ---
<Ange Pedroza R - Last Filed: 01/16/20 12:37> L & D Note - General Info Date of Service: 01/16/20 Mother's Due Date: 02/06/20 - Delivery Note Labor: Induced by Oxytocin Delivery Outcome: Livebirth Delivery Method: Spontaneous Vaginal Delivery-Single Infant Delivery Mode: Spontaneous Presentation: Left Occiput Anterior (ANASTASIA) Nuchal Cord: None Anesthesia Type: Intrathecal Amniotic Fluid Description: Clear Episiotomy Type: None Laceration: None Cord: 3 Vessels Wilmot: Bulb Syringe, Warmed Delivery Comments (Free Text/Narrative):: 35 year old female that presented for IOL at 37w0d secondary to ICP. Induced with pitocin. AROM attempted but unsuccessful however patient leaked amniotic shortly after that. Patient progressed to complete without complication. Head delivered spontaneously without complication. Blood clot noted with delivery of shoulder. body delivered spontaneously. Clots noted with delivery of placenta suspect placental abruption. Delivered over intact perineum - General Info Date of Service: 01/16/20 Functional Status: Reports: Pain Controlled - Review of Systems General: Reports: No Symptoms HEENT: Reports: No Symptoms Pulmonary: Reports: No Symptoms Cardiovascular: Reports: No Symptoms Gastrointestinal: Reports: No Symptoms Genitourinary: Reports: No Symptoms Musculoskeletal: Reports: No Symptoms Skin: Reports: No Symptoms Neurological: Reports: No Symptoms Psychiatric: Reports: No Symptoms - Patient Data Vitals - Most Recent: Last Vital Signs Temp 96.9 F 01/16/20 09:00 Pulse 69 01/16/20 10:15 Resp 16 01/16/20 02:10 BP 113/61 01/16/20 10:15 Pulse Ox 96 01/16/20 10:15 Weight - Most Recent: 86.183 kg Lab Results Last 24 Hours: Laboratory Results - last 24 hr 01/16/20 Range/Units 01:36 WBC 6.8 (5.0-10.0) 10^3/uL RBC 4.36 (4.2-5.4) 10^6/uL Hgb 9.4 L D (12.0-16.0) g/dL Hct 30.3 L (37.0-47.0) % MCV 69.5 L D (80-100) fL MCH 21.6 L (27.0-34.0) pg MCHC 31.0 L (33.0-35.0) g/dL Plt Count 293 (150-450) 10^3/uL Med Orders - Current: Current Medications Acetaminophen (Tylenol) 650 mg PO Q4H PRN PRN Reason: Pain (Mild 1-3) and fever Benzocaine/Menthol (Dermoplast Pain Relief [place]) 0 gm TOP Q4H PRN PRN Reason: Perineal comfort measures Carboprost Tromethamine (Hemabate Ds) 250 mcg IM ASDIRECTED PRN PRN Reason: HEMORRHAGE Docusate Sodium (Colace) 100 mg PO BID PRN PRN Reason: Constipation Tranexamic Acid 1,000 mg/ (Sodium Chloride) 110 mls @ 660 mls/hr IV ONETIME PRN PRN Reason: Bleeding Oxytocin/Sodium Chloride (Pitocin In Ns 30 Unit/500 Ml) 30 unit in 500 mls @ 2 mls/hr IV TITRATE COLETTE; Protocol Last Titration: 01/16/20 09:00 Dose: 9 munits/min, 9 mls/hr Documented by: Lactated Ringer's (Ringers, Lactated) 1,000 mls @ 125 mls/hr IV ASDIRECTED COLETTE Last Admin: 01/16/20 08:19 Dose: 125 mls/hr Documented by: Ibuprofen (Motrin) 800 mg PO Q8H PRN PRN Reason: Mild Pain or Fever Lidocaine HCl (Xylocaine-Mpf 1%) 30 ml INJECT ASDIRECTED PRN PRN Reason: Perineal Repair Methylergonovine Maleate (Methergine) 0.2 mg IM ASDIRECTED PRN PRN Reason: Hemorrhage Misoprostol (Cytotec) 800 mcg RECTAL ASDIRECTED PRN PRN Reason: Hemorrhage Ondansetron HCl (Zofran) 4 mg IVPUSH Q4H PRN PRN Reason: Nausea/Vomiting Oxytocin (Pitocin) 10 unit IM ONETIME PRN PRN Reason: Bleeding Prenat Multivit/Sales/Marketing/Iron/Folic Ac ( Plus Iron) 1 each PO DAILY COLETTE Simethicone (Simethicone) 80 mg PO Q4H PRN PRN Reason: Gas Sodium Chloride (Saline Flush) 10 ml FLUSH ASDIRECTED PRN PRN Reason: Keep Vein Open Sodium Chloride (Saline Flush) 10 ml FLUSH ASDIRECTED PRN PRN Reason: Keep Vein Open Zolpidem Tartrate (Ambien) 5 mg PO BEDTIME PRN PRN Reason: Insomnia Discontinued Medications Epinephrine HCl (Adrenalin) Confirm Administered Dose 1 mg .ROUTE .STK-MED ONE Stop: 01/16/20 07:53 Last Admin: 01/16/20 10:33 Dose: Not Given Documented by: Fentanyl (Sublimaze) Confirm Administered Dose 100 mcg .ROUTE .STK-MED ONE Stop: 01/16/20 07:53 Last Admin: 01/16/20 10:33 Dose: Not Given Documented by: Lactated Ringer's (Ringers, Lactated) 1,000 mls @ 999 mls/hr IV BOLUS ONE Stop: 01/15/20 18:19 Last Admin: 01/16/20 07:58 Dose: 999 mls/hr Documented by: Sufentanil Citrate (Sufenta) Confirm Administered Dose 50 mcg .ROUTE .STK-MED ONE Stop: 01/16/20 07:53 Last Admin: 01/16/20 10:33 Dose: Not Given Documented by: - Exam General: Alert Lungs: Clear to Auscultation, Normal Respiratory Effort Cardiovascular: Regular Rate, Regular Rhythm GI/Abdominal Exam: Normal Bowel Sounds (Female) Exam: Normal External Exam, Normal Bimanual Exam Back Exam: Normal Inspection, Full Range of Motion Extremities: Normal Inspection Skin: Warm, Dry, Intact Psy/Mental Status: Alert - Problem List & Annotations (1) (normal spontaneous vaginal delivery) SNOMED Code(s): 42281095, 074848362 Code(s): O80 - ENCOUNTER FOR FULL-TERM UNCOMPLICATED DELIVERY Status: Acute Current Visit: Yes (2) Placental abruption SNOMED Code(s): 810346162 Code(s): O45.90 - PREMATURE SEPARATION OF PLACENTA, UNSP, UNSP TRIMESTER Status: Acute Current Visit: Yes (3) hemorrhage SNOMED Code(s): 79788974 Code(s): O72.1 - OTHER IMMEDIATE HEMORRHAGE Status: Acute Current Visit: Yes (4) HSV (herpes simplex virus) anogenital infection SNOMED Code(s): 561747657 Code(s): A60.9 - ANOGENITAL HERPESVIRAL INFECTION, UNSPECIFIED Status: Acute Current Visit: No (5) Intrahepatic cholestasis of SNOMED Code(s): 913341169 Code(s): O26.619 - LIVER AND BILIARY TRACT DISORD IN , UNSP TRIMESTER; K83.1 - OBSTRUCTION OF BILE DUCT Status: Acute Current Visit: No (6) Microcytic anemia SNOMED Code(s): 396283884 Code(s): D50.9 - IRON DEFICIENCY ANEMIA, UNSPECIFIED Status: Acute Current Visit: No (7) Polysubstance abuse SNOMED Code(s): 661413002 Code(s): F19.10 - OTHER PSYCHOACTIVE SUBSTANCE ABUSE, UNCOMPLICATED Status: Acute Current Visit: No - Problem List Review Problem List Initiated/Reviewed/Updated: Yes - My Orders Last 24 Hours: My Active Orders 01/15/20 17:19 Patient Status [ADT] Routine Communication Order [RC] ASDIRECTED Notify Provider Vital Signs OB [RC] ASDIRECTED Notify Provider [RC] PRN Up ad Rosy [RC] ASDIRECTED Acetaminophen [TylenoL] 650 mg PO Q4H PRN Carboprost Tromethamine [Hemabate DS] 250 mcg IM ASDIRECTED PRN Lidocaine 1% [Xylocaine-MPF 1%] 30 ml INJECT ASDIRECTED PRN Methylergonovine [Methergine] 0.2 mg IM ASDIRECTED PRN Ondansetron [Zofran] 4 mg IVPUSH Q4H PRN Sodium Chloride 0.9% [Saline Flush] 10 ml FLUSH ASDIRECTED PRN Tranexamic Acid [Cyklokapron] 1,000 mg Sodium Chloride 0.9% [Normal Saline] 100 ml IV ONETIME miSOPROStoL [Cytotec] 800 mcg RECTAL ASDIRECTED PRN Saline Lock Insert [OM.PC] Routine Resuscitation Status Routine 01/15/20 17:30 Lactated Ringers [Ringers, Lactated] 1,000 ml IV ASDIRECTED Oxytocin/Normal Saline [Pitocin in NS 30 UNIT/500 ML] 30 unit in 500 ml IV TITRATE 01/16/20 00:00 Pump Management, Intrathecal [RC] ASDIRECTED 01/16/20 Breakfast Regular Diet [DIET] 01/16/20 Lunch Regular Diet [DIET] 01/16/20 12:33 Up ad Rosy [RC] ASDIRECTED Benzocaine/Menthol [Dermoplast Pain Relief [place]] See Dose Instructions TOP Q4H PRN Docusate Sodium [Colace] 100 mg PO BID PRN Ibuprofen [Motrin] 800 mg PO Q8H PRN Oxytocin [Pitocin] 10 unit IM ONETIME PRN Simethicone 80 mg PO Q4H PRN Sodium Chloride 0.9% [Saline Flush] 10 ml FLUSH ASDIRECTED PRN Zolpidem [Ambien] 5 mg PO BEDTIME PRN Assess Lochia [WOMSER] Per Unit Routine Assess Uterine Involution [WOMSER] Per Unit Routine Breast Pump [WOMSER] Per Unit Routine Ice Therapy [OM.PC] Per Unit Routine Perineal Care [OM.PC] Per Unit Routine Saline Lock Insert [OM.PC] Urgent Sitz Bath [OM.PC] Per Unit Routine 01/16/20 Dinner Regular Diet [DIET] 01/16/20 18:00 CBC W/O DIFF,HEMOGRAM [HEME] Routine 01/17/20 06:00 CBC W/O DIFF,HEMOGRAM [HEME] Routine 01/17/20 09:00 Vit with Ca/FA/Iron [ Plus Iron] 1 each PO DAILY - Plan Plan:: EBL 500ml Plan 1. recheck CBC tonight at 6pm and then again at 6am 2. monitor for signs of bleeding 3. begin routine cares. <Louie Weber - Last Filed: 01/17/20 10:40> - Patient Data Vitals - Most Recent: Last Vital Signs Temp 98.9 F 01/17/20 07:54 Pulse 67 01/17/20 07:54 Resp 18 01/17/20 07:54 BP 115/57 L 01/17/20 07:54 Pulse Ox 100 01/17/20 07:54 Lab Results Last 24 Hours: Laboratory Results - last 24 hr 01/16/20 01/17/20 Range/Units 18:05 06:30 WBC 11.7 H 9.7 (5.0-10.0) 10^3/uL RBC 4.45 4.14 L (4.2-5.4) 10^6/uL Hgb 9.7 L 9.0 L (12.0-16.0) g/dL Hct 31.0 L 29.2 L (37.0-47.0) % MCV 69.7 L 70.5 L (80-100) fL MCH 21.8 L 21.7 L (27.0-34.0) pg MCHC 31.3 L 30.8 L (33.0-35.0) g/dL Plt Count 255 155 D (150-450) 10^3/uL Med Orders - Current: Current Medications Acetaminophen (Tylenol) 650 mg PO Q4H PRN PRN Reason: Pain (Mild 1-3) and fever Benzocaine/Menthol (Dermoplast Pain Relief [place]) 0 gm TOP Q4H PRN PRN Reason: Perineal comfort measures Carboprost Tromethamine (Hemabate Ds) 250 mcg IM ASDIRECTED PRN PRN Reason: HEMORRHAGE Docusate Sodium (Colace) 100 mg PO BID PRN PRN Reason: Constipation Last Admin: 01/17/20 06:42 Dose: 100 mg Documented by: Tranexamic Acid 1,000 mg/ (Sodium Chloride) 110 mls @ 660 mls/hr IV ONETIME PRN PRN Reason: Bleeding Last Admin: 01/16/20 12:30 Dose: 660 mls/hr Documented by: Oxytocin/Sodium Chloride (Pitocin In Ns 30 Unit/500 Ml) 30 unit in 500 mls @ 2 mls/hr IV TITRATE COLETTE; Protocol Last Titration: 01/16/20 15:40 Dose: 0 munits/min, 0 mls/hr Documented by: Lactated Ringer's (Ringers, Lactated) 1,000 mls @ 125 mls/hr IV ASDIRECTED COLETTE Last Admin: 01/16/20 08:19 Dose: 125 mls/hr Documented by: Ibuprofen (Motrin) 800 mg PO Q8H PRN PRN Reason: Mild Pain or Fever Last Admin: 01/17/20 06:42 Dose: 800 mg Documented by: Lidocaine HCl (Xylocaine-Mpf 1%) 30 ml INJECT ASDIRECTED PRN PRN Reason: Perineal Repair Methylergonovine Maleate (Methergine) 0.2 mg IM ASDIRECTED PRN PRN Reason: Hemorrhage Misoprostol (Cytotec) 800 mcg RECTAL ASDIRECTED PRN PRN Reason: Hemorrhage Ondansetron HCl (Zofran) 4 mg IVPUSH Q4H PRN PRN Reason: Nausea/Vomiting Oxycodone/Acetaminophen (Percocet 325-5 Mg) 1 tab PO Q4H PRN PRN Reason: Pain (moderate 4-6) Oxytocin (Pitocin) 10 unit IM ONETIME PRN PRN Reason: Bleeding Prenat Multivit/[place]/Iron/Folic Ac ( Plus Iron) 1 each PO DAILY COLETTE Last Admin: 01/17/20 08:57 Dose: 1 each Documented by: Simethicone (Simethicone) 80 mg PO Q4H PRN PRN Reason: Gas Sodium Chloride (Saline Flush) 10 ml FLUSH ASDIRECTED PRN PRN Reason: Keep Vein Open Sodium Chloride (Saline Flush) 10 ml FLUSH ASDIRECTED PRN PRN Reason: Keep Vein Open Zolpidem Tartrate (Ambien) 5 mg PO BEDTIME PRN PRN Reason: Insomnia Discontinued Medications Epinephrine HCl (Adrenalin) Confirm Administered Dose 1 mg .ROUTE .STK-MED ONE Stop: 01/16/20 07:53 Last Admin: 01/16/20 10:33 Dose: Not Given Documented by: Epinephrine HCl (Adrenalin) 0.1 mg .XX .STK-MED ONE Stop: 01/16/20 14:47 Epinephrine HCl (Adrenalin) 0.1 mg .XX .STK-MED ONE Stop: 01/16/20 14:47 Fentanyl (Sublimaze) Confirm Administered Dose 100 mcg .ROUTE .STK-MED ONE Stop: 01/16/20 07:53 Last Admin: 01/16/20 10:33 Dose: Not Given Documented by: Fentanyl (Sublimaze) 30 mcg ITHECAL .STK-MED ONE Stop: 01/16/20 14:47 Lactated Ringer's (Ringers, Lactated) 1,000 mls @ 999 mls/hr IV BOLUS ONE Stop: 01/15/20 18:19 Last Admin: 01/16/20 07:58 Dose: 999 mls/hr Documented by: Sufentanil Citrate (Sufenta) Confirm Administered Dose 50 mcg .ROUTE .STK-MED ONE Stop: 01/16/20 07:53 Last Admin: 01/16/20 10:33 Dose: Not Given Documented by: Sufentanil Citrate (Sufenta) 25 mcg ITHECAL .STK-MED ONE Stop: 01/16/20 14:47 - My Orders Last 24 Hours: My Active Orders 01/16/20 12:10 Insert Urinary Catheter [OM.PC] Q24H - Plan Plan:: seen and agreed-DCW
[2020-01-16] MEDS ORDERED: Acetaminophen/oxyCODONE 325-5 MG Tab PO PRN (14:21)
[2020-01-16] MEDS ORDERED: fentaNYL 100 MCG/2 ML SDV ITHECAL ONE (14:46)
--- NOTE | 2020-01-16 17:18 | OBOUT ---
DATE: 01/16/2020 TIME: 1:20 to 1:40. REASON FOR NST: 1. Intrauterine at 37 weeks, confirmed with 13-/7th week ultrasound. 2. Intrahepatic cholestasis of . 3. GBS negative. 4. Limited care. 5. Maternal anemia with 2 units of packed red blood cells given last week. 6. G8, P 6-0-1-6. NST INTERPRETATIONS: During this time period, heart tone baseline is approximately 120 to 125 and at least two 15 x 15 beats per minute accelerations making this strip reactive as well as reassuring. Tocometer reveals potential 2 to 3 contractions, 1 felt by patient. Blood pressure 113/73, heart rate 93, and temperature 98. ASSESSMENT: 1. Nonstress test, reactive as well as reassuring. 2. Tocometer with contractions. PLAN: Initial attempt shortly after NST was made to try for artificial rupture of membranes, was not amenable to be done. Therefore, patient was followed closely. Pitocin was started. Please see notes for further details. She was being induced due to her being 37 weeks, intrahepatic cholestasis of with history of intrahepatic cholestasis of . Did receive 2 units of packed red blood cells last week. Please see other notes for further details as well. H and P done in through [employer]. For this, records called for, reviewed and supplemented by patient's history. Review of systems reviewed fully and felt to be contributory for what was noted. Please see other notes for further details. [facility] /[id number]
[2020-01-16] MEDS: Ibuprofen 800 MG Tab PO PRN (18:30)
[2020-01-17] MEDS: Ibuprofen 800 MG Tab PO PRN ×3 (06:42→22:53)
[2020-01-17] MEDS: Prenatal Multivitamin with Calcium/Folic Acid/Iron Tab PO SCH (08:57)
--- NOTE | 2020-01-17 12:58 | PCM.SN.2 ---
<Ange Pedroza - Last Filed: 01/17/20 12:53> - Free Text/Narrative Note: Obstetrics Progress Note Post Day Number 1 Patient: Gracie Rabago Admit Date: 01/16/2020 Today's Date: 01/17/2020 Subjective: Gracie is day 1 s/p . She reports her lochia is moderate . She is not . She has good pain control. She has been advancing her diet and has good PO intake. Patient denies nausea or vomiting. Patient has been urinating spontaneously. She has not had a bowel movement. She has been ambulating. She no acute events. No acute events overnight. Objective: Vitals reviewed General: alert, in no acute distress Lungs: clear to auscultation bilaterally Heart: regular rate and rhythm, normal S1 S2, no murmurs Abdomen: soft, nontender, nondistended, bowel sounds present Uterus: Firm nontender at the umbilicus. Lower extremities are nontender with noedema. Skin: is warm and dry, well perfused no visible lesions Lab Results: O+ hgb 9.0 plt 155 RPR: non reactive Rubella: immune GBS: negative Hbs:negative Hep C carrier Assessment: 35 year old day 1 s/p affected by ICP Patient is stable and comfortable, no acute distress. No signs of anemia. Plan: Encourage ambulation. Advance diet as tolerated. Continue with advancing routine post cares. Plan for discharge tomorrow. Ange Pedroza <Louie Weber - Last Filed: 01/18/20 09:53> - Free Text/Narrative Note: seen and agreed-DCW
[2020-01-18 12:02] VITALS: BP 116/67; PULSE 78
[2020-01-18] MEDS: Prenatal Multivitamin with Calcium/Folic Acid/Iron Tab PO SCH (12:22)
--- NOTE | 2020-01-18 12:28 | DISCH ---
ADMITTING DIAGNOSES: 1. Intrauterine at 37 weeks, confirmed with 32 and 1/7 weeks ultrasound. 2. Intrahepatic cholestasis of . 3. GBS negative. 4. Limited care. 5. Maternal anemia with 2 units of packed red blood cells given last week. 6. G8, P6-0-1-6. POSTOPERATIVE DIAGNOSES: 1. Intrauterine at 37 weeks, confirmed with 32 and 1/7 weeks ultrasound, delivered. 2. Intrahepatic cholestasis of . 3. GBS negative. 4. Limited care. 5. Maternal anemia with 2 units of packed red blood cells given last week. 6. G8, P6-0-1-6. 7. Placental abruption noted with delivery. 8. hemorrhage with EBL 500 mL with tranexamic acid given. PROCEDURES PERFORMED: NST, Pitocin augmentation, artificial rupture of membranes, spontaneous vaginal delivery on 01/16/[address] Weber. HISTORY OF PRESENT ILLNESS: Please see H and P. SUMMARY OF HOSPITAL COURSE: The patient was admitted on the above date with above diagnoses followed closely. Had Pitocin augmentation, then artificial rupture of membranes, then went on to have a spontaneous vaginal delivery yielding a male with score of 8 and 9, weighing 7 pounds 7 ounces (3380 g). Please see delivery note for further details. There was blood noted after delivery of shoulders and blood clot with delivery of the placenta with placenta delivering quickly and suspected abruption, TXA was given and EBL was 500 mL. Hemoglobin was followed closely thereafter. Predelivery hemoglobin was 9.4, at approximately 6 hours of delivery was 9.7. In the morning on 01/17/2020, it was 9. Please see progress notes for further details. DISCHARGE EVALUATION: The patient is tolerating p.o., is ambulating, urinating, passing flatus, requesting discharge. PHYSICAL EXAMINATION: Vital Signs: Last set of vitals updated and listed on chart. Temperature 99, heart rate 77, blood pressure 92/37 and 115/57, respiratory rate 16. Lungs: Clear to auscultation bilaterally. Heart: S1, S2. Regular rate and rhythm. Firm uterus. -1 below the umbilicus. Extremities: No peripheral edema. No calf pain. CONDITION ON DISCHARGE COMPARED TO CONDITION ON ADMISSION: Improved. DISCHARGE INSTRUCTIONS: Diet as tolerated. Activity: No lifting more than 20 pounds. No sit-ups or straining. Pelvic rest for the next 6 weeks with immediate return to fertility discussed with the patient. Reasons to return or go to the emergency room were discussed with the patient in detail including, but not limited to temperature greater than 100.4, foul- smelling discharge, red hot tender breasts, or increased vaginal bleeding. DISCHARGE MEDICATIONS: 1. Pwzl-bbm-hiljuab-ibuprofen for pain. 2. Iron sulfate 325 b.i.d. x6 weeks, which she has at home. 3. vitamins x6 weeks, which she has at home. FOLLOWUP: 6 weeks . I did discuss with her in the interim reasons to go to emergency room in regard to her infant as well as importance of followup and ramifications of not doing so. She understands and agrees with the above treatment plan. [facility] /[id number]
== END 2020-01-18 13:00 | disposition home or self-care (01) | DRG 807 ==
LOC: DL.OBCHECK 00:52 → DL.OB 00:56 → OBSVTOIN 12:23
PROVIDERS: ADMIT Family Medicine; ATTEND Family Medicine
PROC: 10E0XZZ Delivery of Products of Conception, External Approach (ICD-10-PCS; principal; 2020-01-16)
PROC: 10907ZC Drainage of Amniotic Fluid, Therapeutic from Products of Conception, Via Natural or Artificial Opening (ICD-10-PCS; 2020-01-16)
DX: O80 Encounter for full-term uncomplicated delivery (principal); Z37.0 Single live birth; Z3A.37 37 weeks gestation of pregnancy
CPT/HCPCS: 01967; 36415; 51701; 59409; 85027; A9270-GY; J0171; J2590; J3010; J7120

== ENCOUNTER 2020-06-10 18:33 | Emergency (ER) | payer MEDICAID | END 2020-06-10 19:19 | disposition left against medical advice (07) | LOC: DL.ED 18:33 | DX: Z53.21 Procedure and treatment not carried out due to patient leaving prior to being seen by health care provider (principal) ==

== ENCOUNTER 2022-03-07 02:45 | Emergency (ER) | payer MEDICAID ==
[2022-03-07 02:57] VITALS: BP 116/71; PULSE 83
[2022-03-07] MEDS: MVI, Adult with Vitamin K 10 ML, Folic Acid 1 MG, Thiamine 100 MG in Lactated Ringers 1... IV ONE ×4 (03:48)
[2022-03-07] MEDS: Sodium Chloride 0.9% 10 ML Syringe FLUSH PRN (03:52)
[2022-03-07 04:40] LABS: AMPHETAMINES,URINE POSITIVE (NEGATIVE); BARBITURATES,URINE NEGATIVE (NEGATIVE); BENZODIAZEPINE,URINE NEGATIVE (NEGATIVE); MDMA (ECSTASY), URINE NEGATIVE (NEGATIVE); METHADONE,URINE NEGATIVE (NEGATIVE); METHAMPHETAMINES,URINE POSITIVE (NEGATIVE); OPIATES,URINE NEGATIVE (NEGATIVE); OXYCODONE,URINE NEGATIVE (NEGATIVE); PHENCYCLIDINE,URINE NEGATIVE (NEGATIVE); TCA,URINE NEGATIVE (NEGATIVE)
[2022-03-07 04:51] LABS: ACETAMINOPHEN 0 ug/mL (10-30 (Therapeutic)); ANION GAP 13.9 mEq/L (7-13); CHLORIDE,CL 108 mmol/L (98-107); ESTIMATED GFR 92 mL/min (>=60); SODIUM,NA 146 mmol/L (136-145)
[2022-03-07] MEDS: Sodium Chloride 0.9% 1,000 ML IV ONE (05:42)
[2022-03-07] MEDS: Potassium Chloride 20 MEQ in Premix Bag 1 BAG IV ONE (05:44)
[2022-03-07] MEDS: NS with KCl 40mEq 1,000 ML IV SCH (08:11)
[2022-03-07 09:39] LABS: ANION GAP 11.1 mEq/L (7-13); CHLORIDE,CL 112 mmol/L (98-107); ESTIMATED GFR 117 mL/min (>=60); SODIUM,NA 146 mmol/L (136-145)
== END 2022-03-07 10:19 | disposition home or self-care (01) ==
LOC: DL.ED 02:45
DX: E86.0 Dehydration (principal); E87.6 Hypokalemia; F10.929 Alcohol use, unspecified with intoxication, unspecified; Y90.6 Blood alcohol level of 120-199 mg/100 ml; Z86.16 Personal history of COVID-19
CPT/HCPCS: 36415; 80048; 80053; 80143; 80179; 80305; 80307; 85025; 96365; 96366; 96367; 99284; J3411; J3480; J3490; J7030; J7120

== ENCOUNTER 2022-10-09 12:39 | Emergency (ER) | payer SELFPAY ==
[2022-10-09] MEDS: Sodium Chloride 0.9% 10 ML Syringe FLUSH PRN (13:20)
[2022-10-09] MEDS: Sodium Chloride 0.9% 1,000 ML IV ONE (13:20)
[2022-10-09] MEDS: Ketorolac 30 MG/ML SDV IVPUSH ONE (13:20)
[2022-10-09 13:21] VITALS: BP 138/111; PULSE 107
[2022-10-09] MEDS: Ondansetron 4 MG/2 ML SDV IVPUSH ONE (13:21)
[2022-10-09 13:33] LABS: APPEARANCE,URINE CLOUDY (CLEAR); BILIRUBIN,URINE NEGATIVE (NEGATIVE); COLOR,URINE YELLOW (YELLOW); GLUCOSE,URINE NEGATIVE (NEGATIVE); KETONES,URINE NEGATIVE (NEGATIVE); LEUKOCYTE ESTERASE,URINE LARGE (NEGATIVE); NITRITE,URINE POSITIVE (NEGATIVE); OCCULT BLOOD,URINE TRACE-INTACT (NEGATIVE); PROTEIN,URINE 30 (NEGATIVE); UROBILINOGEN,URINE >=8.0 mg/dL (0.2-1.0)
[2022-10-09 13:46] LABS: AMORPHOUS SEDIMENT,URINE FEW /HPF (NOT SEEN); BACTERIA,URINE MANY /HPF (0-FEW/HPF); EPITHELIAL CELLS,URINE MODERATE /HPF (NOT SEEN); MUCUS,URINE MODERATE /LPF (NOT SEEN); WBC,URINE 40-50 /HPF (0-5/HPF)
[2022-10-09] MEDS: Take Home: Ciprofloxacin HCl 500 MG, 6 Tab Pack PO ONE (14:14)
[2022-10-13 12:47] LABS: C.TRACHOMATIS BY TMA Positive (Negative); M GENITALIUM Negative (Negative); M GENITALIUM SOURCE Urine; N.GONORRHOEAE BY TMA Negative (Negative); SOURCE Urine
== END 2022-10-09 14:16 | disposition home or self-care (01) ==
LOC: DL.ED 12:39
DX: N30.01 Acute cystitis with hematuria (principal); R11.2 Nausea with vomiting, unspecified; R50.9 Fever, unspecified
CPT/HCPCS: 81001; 87086; 87088; 87186; 87491; 87563; 87591; 96374; 96375; 99283; 99284-25; A9270-GY; J1885; J2405; J3490; J7030

== ENCOUNTER 2024-02-29 10:23 | Emergency (ER) | payer SELFPAY ==
[2024-02-29] MEDS: Diphtheria,Pertussis(Acell),Tetanus Vaccine 0.5 ML Syringe IM ONE (10:37)
[2024-02-29 11:29] VITALS: BP 107/63; PULSE 84
[2024-02-29] MEDS: Bacitracin/Neomycin/Polymyxin B Oint 28.4 GM Tube ONE (11:54)
[2024-02-29] MEDS: Bacitracin Oint 1 GM U/D Packet TOP ONE (11:55)
[2024-02-29] MEDS: Lidocaine 1% 30 ML SDV INJECT ONE (11:55)
== END 2024-02-29 12:13 | disposition home or self-care (01) ==
LOC: DL.ED 10:23
DX: S91.012A Laceration without foreign body, left ankle, initial encounter (principal); Z86.16 Personal history of COVID-19; Z90.89 Acquired absence of other organs; Z79.899 Other long term (current) drug therapy; Y04.0XXA Assault by unarmed brawl or fight, initial encounter; Z23 Encounter for immunization
CPT/HCPCS: 12002; 90471; 90715; 99283; 99284-25; A9270-GY; J3490